=== PATIENT | female | born 1965 | race Two or more races ===

== ENCOUNTER 2016-07-11 08:47 | Emergency (ER) | payer OTHER ==
[2016-07-11 08:56] VITALS: TEMP 98.2; BMI 30.2
--- NOTE | 2016-07-11 09:24 | PDOC ---
History of Present Illness - General History Source: Patient Exam Limitations: No Limitations <TimothyGwen - Last Filed: 07/11/16 11:21> - General History Source: Patient Exam Limitations: No Limitations <Heavenly Irving - Last Filed: 07/11/16 12:05> - General Chief Complaint: Shortness of Breath Stated Complaint: CHEST PAIN, LT ARM PAIN Time Seen by Provider: 07/11/16 09:19 - History of Present Illness Initial Comments: 07/11/16 09:56 The patient is a 50 year old female, with significant past medical history asthma,HLD. 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 She states that the pain initially started in her back and radiated to the front of her chest and left arm. The pain is constant, 8/10 in severity and exacerbated by movement and taking a deep breath. She reports chills, weakness, and fatigue. She visited her PCP on Sunday, 6 days ago, and was prescribed Levaquin. She is on her 6th dose of Levaquin today. She these symptoms feel very similar to when she had bronchitis in the past. Denies cough. Denies fever, nausea, vomiting, diarrhea. Allergies: Penicillins, egg, shellfish, tree nut Surgical Hx: 3 C-sections PCP- (Gwen Aguirre) Past History <Irineo Aguirressica - Last Filed: 07/11/16 11:21> - Past Medical History Anemia: No Asthma: Yes (Intubated in the past 1993) Cancer: No Cardiac Disorders: No CVA: No COPD: Yes CHF: No Dementia: No Diabetes: No GI Disorders: Yes (GALLSTONES) Disorders: No HTN: No Hypercholesterolemia: Yes Liver Disease: No Suicide Attempt (Hx): No Seizures: No Thyroid Disease: Yes (HYPOTHROIDISM) - Surgical History Abdominal Surgery: No Appendectomy: No Cardiac Surgery: No Cholecystectomy: Yes Lung Surgery: No Neurologic Surgery: No Orthopedic Surgery: No - Psycho/Social/Smoking Cessation Hx Anxiety: No Suicidal Ideation: No Smoking History: Former smoker Have you smoked in the past 12 months: No If you are a former smoker, when did you quit?: 11 YRS Information on smoking cessation initiated: No Hx Alcohol Use: No Drug/Substance Use Hx: No Substance Use Type: None Hx Substance Use Treatment: No <Heavenly Irving - Last Filed: 07/11/16 12:05> - Past Medical History Allergies/Adverse Reactions: Allergies Allergy/AdvReac Type Severity Reaction Status Date / Time Penicillins Allergy Severe Rash Verified 07/11/16 08:50 egg Allergy Verified 07/11/16 08:50 shellfish derived Allergy Verified 07/11/16 08:50 tree nut Allergy Hives Verified 07/11/16 08:50 Home Medications: Ambulatory Orders Albuterol Sulfate Inhaler - [Ventolin HFA Inhaler -] 1 - 2 inh PO QID PRN Levothyroxine [Synthroid -] 175 mcg PO DAILY 05/30/14 Simvastatin [Zocor -] 20 mg PO HS 01/10/16 Albuterol 0.083% Nebulizer Purnima [Ventolin 0.083% Nebulizer Soln -] 1 amp NEB PRN 06/20/16 Omeprazole 20 mg PO DAILY 06/20/16 Tiotropium [place] [Spiriva] 1 inh PO DAILY 06/20/16 Azithromycin [Zithromax 250mg Tablets -] 250 mg PO UTDICT #6 tab 07/11/16 Prednisone [Deltasone -] 60 mg PO DAILY #12 tablet 07/11/16 Cardiac Specific PMH - Complaint Specific PMHX Pacemaker: No <Heavenly Irving - Last Filed: 07/11/16 12:05> Review of Systems - Review of Systems Able to Perform ROS?: Yes <Gwen Aguirre - Last Filed: 07/11/16 11:21> <Heavenly Irving - Last Filed: 07/11/16 12:05> - Review of Systems Comments:: 07/11/16 09:57 GENERAL/CONSTITUTIONAL: Yes: chills, weakness. No: fever, loss of appetite. HEAD, EYES, EARS, NOSE AND THROAT: No: change in vision, ear pain, discharge, sore throat, throat swelling. CARDIOVASCULAR: Yes: chest pain. No: lightheadedness, palpitations, syncope RESPIRATORY: No: cough, shortness of breath, wheezing, hemoptysis, stridor. GASTROINTESTINAL: No: nausea, vomiting, abdominal cramping, diarrhea, rectal bleeding, constipation. GENITOURINARY: No: dysuria, hematuria, frequency, urgency, flank pain. MUSCULOSKELETAL: Yes: back pain. No: neck pain, joint pain, muscle swelling or pain SKIN: No: lesions, pallor, rash or easy bruising. NEUROLOGIC: No: headache, vertigo, paresthesias, weakness ENDOCRINE: No: unexplained weight gain or loss HEMATOLOGIC/LYMPHATIC: No: anemia, easy bleeding, swelling nodes (Gwen Aguirre) *Physical Exam <Gwen Aguirre - Last Filed: 07/11/16 11:21> <Heavenly Irving - Last Filed: 07/11/16 12:05> - Vital Signs Last Vital Signs Temp Pulse Resp BP Pulse Ox 98.2 F 71 17 138/83 100 07/11/16 08:52 07/11/16 08:52 07/11/16 08:52 07/11/16 08:52 07/11/16 08:52 - Physical Exam Comments: 07/11/16 09:58 GENERAL: The patient is in no acute distress. HEAD: Normal with no signs of trauma. EYES: PERRLA, EOMI, sclera anicteric, conjunctiva clear. ENT: Ears normal, nares patent, oropharynx clear without exudates. Moist mucous membranes. NECK: Normal range of motion, supple without lymphadenopathy, JVD, or masses. LUNGS: +Left lower lung crackles. No wheezes. HEART:Regular rate and rhythm, normal S1 and S2 without murmur, rub or gallop. ABDOMEN: Soft, nontender, normoactive bowel sounds. No guarding, no rebound. EXTREMITIES: Normal range of motion, no edema. No clubbing or cyanosis. No erythema, or tenderness. NEUROLOGICAL: Cranial nerves II through XII grossly intact. Normal speech. No focal neurological deficits. MUSCULOSKELETAL: Back nontender to palpation, no CVA tenderness SKIN: Warm, Dry, normal turgor, no rashes or lesions noted. (Gwen Aguirre) Heart Score/ECG Review #1 ECG reviewed & interpreted by me at: 11:05 General ECG Interpretation: Sinus Rhythm, Normal Rate, Normal Intervals, No acute ischemic changes <Heavenly Irving - Last Filed: 07/11/16 12:05> ED Treatment Course - LABORATORY CBC & Chemistry Diagram: 07/11/16 09:34 07/11/16 09:34 <Gwen Aguirre - Last Filed: 07/11/16 11:21> - LABORATORY CBC & Chemistry Diagram: 07/11/16 09:34 07/11/16 09:34 <Heavenly Irving - Last Filed: 07/11/16 12:05> - ADDITIONAL ORDERS Additional order review: Laboratory Results 07/11/16 07/11/16 09:46 09:34 D-Dimer < 200 Sodium 138 Potassium 3.8 Chloride 106 Carbon Dioxide 25 Anion Gap 7 L BUN 12 Creatinine 0.9 Creat Clearance w eGFR > 60 Random Glucose 103 Calcium 9.0 Total Bilirubin 0.2 D AST 13 L D ALT 21 D Alkaline Phosphatase 71 Creatine Kinase 77 Troponin I < 0.02 Total Protein 7.5 Albumin 3.7 07/11/16 09:34 RBC 4.39 MCV 85.0 MCHC 33.0 RDW 13.7 MPV 9.0 Neutrophils % 64.2 D Lymphocytes % 26.9 Monocytes % 6.5 Eosinophils % 1.6 Basophils % 0.8 - RADIOLOGY Radiology Studies Ordered: Category Date Time Status CHEST X-RAY PORTABLE* [RAD] Stat Radiology 07/11/16 09:28 Completed Radiograph Interpretation: 07/11/16 11:21 EXAM#: TYPE/EXAM: RESULT: [id number] RAD/CHEST X-RAY PORTABLE* Chest pain. Chest single portable x-ray. Comparison study January 27, 2016. Unremarkable contour of the cardiomediastinal silhouette. The lungs are well aerated. No evidence of pulmonary infiltrates, atelectasis, vascular congestion. No pneumothorax or large pleural effusion is seen. Intact visualized osseous structures. Impression. No evidence of active pulmonary disease. Reported By: South Saul MD 07/11/16 1112 (Gwen Aguirre) Medical Decision Making <Gwen Aguirre - Last Filed: 07/11/16 11:21> <Heavenly Irving - Last Filed: 07/11/16 12:05> - Medical Decision Making 07/11/16 09:24 A portion of this note was documented by scribe services under my direction. I have reviewed the details of the note, within reason, and agree with the documentation with the following case summary and management plan written by me. Nursing documentation reviewed and incorporated into medical decision making 07/11/16 09:36 50 yo F wiht a history of COPD/Asthma, GERD, HLD presenting to the ER with a complaint of left chest and back pain Pt states her symptoms began the week of June 25 She initially she thought it was a cold She was seen by her PMD who started Levaquin Pt is on day 7 today Pt presents because she has noted that her left back pain is now in her chest Pain is worse with deep breathing and movement No fevers (+) chills No cough No travel No ill contacts Last year, pt had 2 admissions for pneumonia 07/11/16 09:46 DD: ACS, PE, pneumonia, effusion, Will do labs, d dimer, cxr Will re assess Will give aleeve for chest wall pain 07/11/16 11:51 07/11/16 11:52 Laboratory Tests 07/11/16 07/11/16 07/11/16 09:34 09:34 09:46 WBC 10.4 H D Hgb 12.3 Hct 37.3 Plt Count 235 Neutrophils % 64.2 D Lymphocytes % 26.9 D-Dimer < 200 BUN 12 Creatinine 0.9 Random Glucose 103 Creatine Kinase 77 Troponin I < 0.02 CXR: negative Will discharge to home Will give Solumedrol and Azithromycin Will ask pt to follow up with Dr St today for pre op clearance Clinical Impression: chest pain (Heavenly Irving) *DC/Admit/Observation/Transfer <Gwen Aguirre - Last Filed: 07/11/16 11:21> - Discharge Dispostion Admit: No <Heavenly Irving - Last Filed: 07/11/16 12:05> Diagnosis at time of Disposition: Chest pain Qualifiers: Chest pain type: unspecified Qualified Code(s): R07.9 - Chest pain, unspecified - Discharge Dispostion Disposition: HOME Condition at time of disposition: Stable - Prescriptions Prescriptions: Prednisone [Deltasone -] 60 mg PO DAILY #12 tablet Azithromycin [Zithromax 250mg Tablets -] 250 mg PO UTDICT #6 tab - Referrals Referrals: Brenda Schmidt [Primary Care Provider] - Goran St MD, MD [Staff Physician] - - Patient Instructions Printed Discharge Instructions: DI for Atypical Chest Pain, DI for Chest Pain, DI for Chronic Obstructive Pulmonary Disease Additional Instructions: Marybeth Thank you for coming in to the ER today I am sorry you are having pain Please take medications as prescribed Please follow up with Dr. St, call today You can take Tylenol for pain Please call your surgeon regarding your surgical date and recommendations regarding use of Aleeve Return to the ER for any other concerns or complaints - Attestations Scribe Attestion: 07/11/16 09:59 Documentation prepared by KATT Lowery, acting as medical biller for Heavenly Irving MD. (Gwen Aguirre)
[2016-07-11 09:58] LABS: BASOPHIL 0.8 % (0-2.0); EOSINOPHIL 1.6 % (0-4.5); MCH 28.1 pg (25.7-33.7); NEUTROPHILS 64.2 % (42.8-82.8); PLATELET COUNT 235 K/MM3 (134-434); RDW 13.7 % (11.6-15.6); WHITE BLOOD COUNT 10.4 K/mm3 (4.0-10.0)
[2016-07-11 10:16] LABS: ALBUMIN 3.7 g/dl (3.4-5.0); ALK PHOS 71 U/L (45-117); ANION GAP 7 (8-16); CO2 25 mmol/L (21-32); CREATININE 0.9 mg/dL (0.55-1.02); GLUCOSE,RANDOM 103 mg/dL (74-106); SGOT/AST 13 U/L (15-37); SGPT/ALT 21 U/L (12-78); TOT PROT 7.5 g/dl (6.4-8.2)
[2016-07-11 10:49] LABS: TROPONIN I < 0.02 ng/ml (0.00-0.05)
[2016-07-11 10:56] LABS: BILIRUBIN,TOTAL 0.2 mg/dL (0.2-1.0)
[2016-07-11] MEDS ORDERED: NAPROXEN 500 MG TABLET (FP) PO ONE (11:21)
[2016-07-11] MEDS ORDERED: NAPROXEN 500 MG TABLET (FP) ONE (11:55)
[2016-07-11 12:38] VITALS: BP 124/80; PULSE 66
--- NOTE | 2016-07-11 18:15 | EKG ---
Test Reason : Blood Pressure : / mmHG Vent. Rate : 074 BPM Atrial Rate : 074 BPM P-R Int : 148 ms QRS Dur : 084 ms QT Int : 384 ms P-R-T Axes : 044 031 039 degrees QTc Int : 426 ms NORMAL SINUS RHYTHM NORMAL ECG WHEN COMPARED WITH ECG OF 20-JUN-2016 10:27, NO SIGNIFICANT CHANGE WAS FOUND Confirmed by QUINTON HAHN MD ([id number]) on 07/11/2016 6:15:19 PM Referred By: Confirmed By:QUINTON HAHN MD
== END 2016-07-11 12:30 | disposition home or self-care (01) ==
LOC: JER 08:47
DX: R07.89 Other chest pain (principal); J45.909 Unspecified asthma, uncomplicated; J44.9 Chronic obstructive pulmonary disease, unspecified; E78.00 Pure hypercholesterolemia, unspecified
CPT/HCPCS: 36415; 71010-TC; 80053; 82550; 84484; 85025; 85379; 93005; 93010; 99284-25

== ENCOUNTER 2016-07-23 17:09 | Emergency (ER) | payer OTHER ==
[2016-07-23 17:15] VITALS: BP 136/81; PULSE 84; TEMP 98; BMI 30.7
[2016-07-23] MEDS ORDERED: IBUPROFEN 600 MG TABLET (FP) PO ONE (17:56)
--- NOTE | 2016-07-23 18:03 | PDOC ---
History of Present Illness - General Chief Complaint: Abscess Boil Stated Complaint: PAIN/BOIL Time Seen by Provider: 07/23/16 17:24 History Source: Patient Exam Limitations: No Limitations - History of Present Illness Initial Comments: 07/23/16 17:57 50 year old female with a medical history of thyroid disease, HTN, asthma and high cholesterol also surgical history of right corneal transplant, tonsillectomy and x 3 complaining of recurrent abscess to right side of head scalp. States area tenderness draining pus and causing her a lot of headache. Denies dizziness or blurriness. Timing/Duration: reports: week Severity: Yes: mild Location: reports: scalp Respiratory Risk Factors: denies: medications Modifying Factors: worse with: antihistamine Associated Symptoms: denies: jaundice, malaise, nasal congestion Past History - Travel Traveled outside of the country in the last 30 days: No Close contact w/someone who was outside of country & ill: No - Past Medical History Allergies/Adverse Reactions: Allergies Allergy/AdvReac Type Severity Reaction Status Date / Time Penicillins Allergy Severe Rash Verified 07/23/16 17:15 egg Allergy Verified 07/23/16 17:15 shellfish derived Allergy Verified 07/23/16 17:15 tree nut Allergy Hives Verified 07/23/16 17:15 Home Medications: Ambulatory Orders Albuterol Sulfate Inhaler - [Ventolin HFA Inhaler -] 1 - 2 inh PO QID PRN Levothyroxine [Synthroid -] 175 mcg PO DAILY 05/30/14 Simvastatin [Zocor -] 20 mg PO HS 01/10/16 Albuterol 0.083% Nebulizer Purnima [Ventolin 0.083% Nebulizer Soln -] 1 amp NEB PRN 06/20/16 Omeprazole 20 mg PO DAILY 06/20/16 Tiotropium [place] [Spiriva] 1 inh PO DAILY 06/20/16 Sulfamethoxazole/Trimethoprim [Bactrim Ds -] 1 tab PO BID #20 tablet 07/23/16 Anemia: No Asthma: Yes (Intubated in the past 1993) Cancer: No Cardiac Disorders: No CVA: No COPD: Yes CHF: No Dementia: No Diabetes: No GI Disorders: Yes (GALLSTONES) Disorders: No HTN: No Hypercholesterolemia: Yes Liver Disease: No Suicide Attempt (Hx): No Seizures: No Thyroid Disease: Yes (HYPOTHROIDISM) - Surgical History Abdominal Surgery: No Appendectomy: No Cardiac Surgery: No Cholecystectomy: Yes Lung Surgery: No Neurologic Surgery: No Orthopedic Surgery: No - Psycho/Social/Smoking Cessation Hx Anxiety: No Suicidal Ideation: No Smoking History: Former smoker Have you smoked in the past 12 months: No If you are a former smoker, when did you quit?: 11 YRS Information on smoking cessation initiated: No Hx Alcohol Use: No Drug/Substance Use Hx: No Substance Use Type: None Hx Substance Use Treatment: No Review of Systems - Review of Systems Able to Perform ROS?: Yes Is the patient limited Syriac proficient: No Constitutional: No: Chills, Fever, Night Sweats, Weakness, Unexplained wgt Loss HEENTM: No: Eye Pain, Double Vision, Nose Congestion, Throat Pain, Throat Swelling Respiratory: No: Cough, Orthopnea, Shortness of Breath, Wheezing Cardiac (ROS): No: Chest Pain, Lightheadedness, Palpitations ABD/GI: No: Abdominal Distended, Blood Streaked Bowels, Nausea, Poor Appetite, Abdominal cramping : No: Hematuria, Incontinence Neurological: Yes: Headache. No: Numbness, Paresthesia, Seizure, Weakness, Other *Physical Exam - Vital Signs Last Vital Signs Temp Pulse Resp BP Pulse Ox 98 F 84 18 136/81 99 07/23/16 17:12 07/23/16 17:12 07/23/16 17:12 07/23/16 17:12 07/23/16 17:12 - Physical Exam General Appearance: Yes: Nourished, Appropriately Dressed, Apparent Distress HEENT: positive: EOMI, MICHAEL, TMs Normal, Pharynx Normal Neck: positive: Supple. negative: Lymphadenopathy (R), Lymphadenopathy (L) Respiratory/Chest: positive: Chest Tender, Lungs Clear, Normal Breath Sounds Cardiovascular: positive: Regular Rhythm, Regular Rate, S1, S2 Extremity: positive: Normal Capillary Refill Integumentary: positive: Bruising Neurologic: positive: product safety compliance leader II-XII NML intact, Fully Oriented, Alert, Normal Mood/ Affect, Normal Response, Motor Strength 5/5 Medical Decision Making - Medical Decision Making 07/23/16 18:04 50 year old female with scalp abscess wound culture ibuprofen 600mg po once -Rx: bactrim ds x 10 days *DC/Admit/Observation/Transfer Diagnosis at time of Disposition: Abscess - Discharge Dispostion Disposition: HOME Condition at time of disposition: Good Admit: No - Prescriptions Prescriptions: Sulfamethoxazole/Trimethoprim [Bactrim Ds -] 1 tab PO BID #20 tablet - Referrals Referrals: Brenda Schmidt [Primary Care Provider] - - Patient Instructions Additional Instructions: Please apply warm compress to area for 20 minutes on and 20 minutes off 3 times daily. Return for dizziness, or blurred vision. Please follow up with material handler 1st shift. Make sure you complete all antibiotics and return for worsening of abscess. - Post Discharge Activity Work/School Note: Back to Work
== END 2016-07-23 18:16 | disposition home or self-care (01) ==
LOC: JERFT 17:09
DX: L02.811 Cutaneous abscess of head [any part, except face] (principal); J45.909 Unspecified asthma, uncomplicated; J44.9 Chronic obstructive pulmonary disease, unspecified; E78.00 Pure hypercholesterolemia, unspecified; E03.9 Hypothyroidism, unspecified
CPT/HCPCS: 87070; 87186; 87205; 99281-25

== ENCOUNTER 2016-11-16 13:13 | Emergency (ER) | payer OTHER ==
[2016-11-16 13:18] VITALS: BMI 30.2
--- NOTE | 2016-11-16 15:32 | PDOC ---
History of Present Illness - General Chief Complaint: Pain Stated Complaint: PAIN Time Seen by Provider: 11/16/16 15:27 History Source: Patient Exam Limitations: No Limitations - History of Present Illness Initial Comments: 11/16/16 15:30 The patient is a 50-year-old female with a significant past medical history of gallstones (noncompliant with recommendation for cholecystectomy) (presents to the emergency department with intermittent right upper quadrant pain for the past 48 hours. The pain is sharp and stabbing. It is associated with mild nausea. She denies fever or chills. The pain occurs more frequently after meals. She does not have any pain at this time. She denies vomiting, diarrhea. She denies rash, dyspnea. She states that she has had chronic vaginal discharge for the past 6 months, and is pending an evaluation with her auto research engineer. She is sexually active with one partner, and has no history of sexually transmitted diseases. She has not had any lower abdominal pain. She would like us to focus on the abdominal pain. She is not concerned about the discharge. 11/16/16 15:33 Past History - Past Medical History Allergies/Adverse Reactions: Allergies Allergy/AdvReac Type Severity Reaction Status Date / Time Penicillins Allergy Severe Rash Verified 11/16/16 13:16 egg Allergy Verified 11/16/16 13:16 shellfish derived Allergy Verified 11/16/16 13:16 tree nut Allergy Hives Verified 11/16/16 13:16 Home Medications: Ambulatory Orders Albuterol Sulfate Inhaler - [Ventolin HFA Inhaler -] 1 - 2 inh PO QID PRN Levothyroxine [Synthroid -] 175 mcg PO DAILY 05/30/14 Simvastatin [Zocor -] 20 mg PO HS 01/10/16 Albuterol 0.083% Nebulizer Purnima [Ventolin 0.083% Nebulizer Soln -] 1 amp NEB PRN 06/20/16 Omeprazole 20 mg PO DAILY 06/20/16 Tiotropium [place] [Spiriva] 1 inh PO DAILY 06/20/16 Sulfamethoxazole/Trimethoprim [Bactrim Ds -] 1 tab PO BID #20 tablet 07/23/16 Anemia: No Asthma: Yes (Intubated in the past 1993) Cancer: No Cardiac Disorders: No CVA: No COPD: Yes CHF: No Dementia: No Diabetes: No GI Disorders: Yes (GALLSTONES) Disorders: No HTN: No Hypercholesterolemia: Yes Liver Disease: No Suicide Attempt (Hx): No Seizures: No Thyroid Disease: Yes (HYPOTHROIDISM) - Surgical History Abdominal Surgery: No Appendectomy: No Cardiac Surgery: No Cholecystectomy: Yes Lung Surgery: No Neurologic Surgery: No Orthopedic Surgery: No - Psycho/Social/Smoking Cessation Hx Anxiety: No Suicidal Ideation: No Smoking History: Former smoker Have you smoked in the past 12 months: No If you are a former smoker, when did you quit?: 12 years ago Information on smoking cessation initiated: No Hx Alcohol Use: No Drug/Substance Use Hx: No Substance Use Type: None Hx Substance Use Treatment: No Review of Systems - Review of Systems Comments:: 11/16/16 15:33 CONSTITUTIONAL: Absent: fever, chills, diaphoresis, generalized weakness, malaise, loss of appetite HEENT: Absent: rhinorrhea, nasal congestion, throat pain, throat swelling, difficulty swallowing, mouth swelling, ear pain, eye pain, visual Changes CARDIOVASCULAR: Absent: chest pain, loss of consciousness, palpitations, irregular heart rate, peripheral edema RESPIRATORY: Absent: cough, shortness of breath, dyspnea with exertion, orthopnea, wheezing, stridor, hemoptysis GASTROINTESTINAL: Present: See history of present illness Absent: abdominal distension, vomiting, diarrhea, constipation, melena, hematochezia GENITOURINARY: Present: see HPI Absent: dysuria, frequency, urgency, hesitancy, hematuria, flank pain, genital pain MUSCULOSKELETAL: Absent: myalgia, arthralgia, joint swelling SKIN: Absent: rash, itching, pallor HEMATOLOGIC/IMMUNOLOGIC: Absent: easy bleeding, easy bruising, lymphadenopathy, frequent infections ENDOCRINE: Absent: unexplained weight gain, unexplained weight loss, heat intolerance, cold intolerance NEUROLOGIC: Absent: headache, focal weakness or paresthesias, dizziness, unsteady gait, seizure, mental status changes, bladder or bowel incontinence PSYCHIATRIC: Absent: anxiety, depression, suicidal or homicidal ideation, hallucinations. *Physical Exam - Vital Signs Last Vital Signs Temp Pulse Resp BP Pulse Ox 98.1 F 92 H 18 156/90 98 11/16/16 13:16 11/16/16 13:16 11/16/16 13:16 11/16/16 13:16 11/16/16 13:16 - Physical Exam Comments: 11/16/16 15:35 GENERAL: Well developed, well nourished. Awake and alert. No acute distress. HEENT: Normocephalic, atraumatic. PERRLA, EOMI. No conjunctival pallor. Sclera are non- icteric. Moist mucous membranes. Oropharynx is clear. NECK: Supple. Full ROM. No JVD. Carotid pulses 2+ and symmetric, without bruits. No thyromegaly. No lymphadenopathy. CARDIOVASCULAR: Regular rate and rhythm. No murmurs, rubs, or gallops. Distal pulses are 2+ and symmetric. PULMONARY: No evidence of respiratory distress. Lungs clear to auscultation bilaterally. No wheezing, rales or rhonchi. ABDOMINAL: Mild tenderness to deep palpation in the right upper quadrant Soft. Non-distended. No rebound or guarding. No organomegaly. Normoactive bowel sounds. MUSCULOSKELETAL Normal range of motion at all joints. No bony deformities or tenderness. No CVA tenderness. EXTREMITIES: No cyanosis. No clubbing. No edema. No calf tenderness. SKIN: Warm and dry. Normal capillary refill. No rashes. No jaundice. NEUROLOGICAL: Alert, awake, appropriate. Cranial nerves 2-12 intact. No deficits to light touch and temperature in face, upper extremities and lower extremities. No motor deficits in the in face, upper extremities and lower extremities. Normoreflexic in the upper and lower extremities. Normal speech. Toes are down- going bilaterally. Gait is normal without ataxia. PSYCHIATRIC: Cooperative. Good eye contact. Appropriate mood and affect. ED Treatment Course - LABORATORY CBC & Chemistry Diagram: 11/16/16 16:04 11/16/16 16:04 Medical Decision Making - Medical Decision Making 11/16/16 15:35 The patient is well-appearing and in no acute distress Her signs and symptoms are potentially consistent with biliary colic I doubt that she has acute cholecystitis Will obtain labs and ultrasound Her gynecological complaints are chronic and long-standing She is being followed by gynecology and states that she has an appointment She does not want us to investigate her gynecological complaints, and at this time, they do not seem related to her right upper quadrant abdominal pain 11/16/16 16:29 Ultrasound has been completed Labs are pending 11/16/16 16:37 Ultrasound noted with cholelithiasis but no evidence of cholecystitis as well as fatty liver 11/16/16 16:52 11/16/16 17:07 Labs noted She is aware of the transaminitis and fatty liver, and understands the necessity of following up with gastroenterology Clinical impression: Biliary colic Fatty liver I have referred her to gastroenterology, surgery, as well as her primary care physician I discussed the physical exam findings, ancillary test results and final diagnoses with the patient. I answered all of the patient's questions. The patient was satisfied with the care received and felt comfortable with the discharge plan and treatment plan. The patient will call their primary care physician within 24 hours to arrange follow-up and will return to the Emergency Department with any new, persistent or worsening symptoms. A portion of this note was documented by scribe services under my direction. I have reviewed the details of the note, within reason, and agree with the documentation with the following case summary and management plan written by me. *DC/Admit/Observation/Transfer Diagnosis at time of Disposition: Abdominal pain - Discharge Dispostion Disposition: HOME - Referrals Referrals: Brenda Schmidt [Primary Care Provider] - Giacomo Hsu MD [Staff Physician] - Call tomorrow Alvarez Skaggs MD [Staff Physician] - Call tomorrow - Patient Instructions Printed Discharge Instructions: DI for Abdominal Pain-Adult, DI for Gallstones , Nonalcoholic Fatty Liver Disease Additional Instructions: Return to the emergency department immediately with ANY new, persistent or worsening symptoms. You MUST call and follow up with your doctor tomorrow. Please make sure your doctor reviews the results of your emergency department evaluation. - Post Discharge Activity Work/School Note: Back to Work
[2016-11-16 16:27] LABS: BASOPHIL 0.7 % (0-2.0); EOSINOPHIL 3.9 % (0-4.5); MCH 27.9 pg (25.7-33.7); MCHC 32.5 g/dl (32.0-36.0); MEAN CELL VOLUME 85.7 fl (80-96); MEAN PLT VOLUME 9.2 fl (7.5-11.1); NEUTROPHILS 65.2 % (42.8-82.8); PLATELET COUNT 237 K/MM3 (134-434); RDW 14.7 % (11.6-15.6); WHITE BLOOD COUNT 8.5 K/mm3 (4.0-10.0)
[2016-11-16 17:02] LABS: ALBUMIN 3.8 g/dl (3.4-5.0); ALK PHOS 91 U/L (45-117); ANION GAP 7 (8-16); BILIRUBIN,TOTAL 0.3 mg/dL (0.2-1.0); CALCIUM 9.1 mg/dL (8.5-10.1); CO2 24 mmol/L (21-32); CREATININE 0.8 mg/dL (0.55-1.02); GLUCOSE,RANDOM 85 mg/dL (74-106); SGOT/AST 70 U/L (15-37); SGPT/ALT 85 U/L (12-78); TOT PROT 7.3 g/dl (6.4-8.2)
[2016-11-16 17:27] VITALS: BP 134/78; PULSE 80; TEMP 98.6
== END 2016-11-16 17:27 | disposition home or self-care (01) ==
LOC: JER 13:13
DX: R11.0 Nausea (principal); R10.9 Unspecified abdominal pain; M54.5 Low back pain
CPT/HCPCS: 36415; 76705-TC; 80053; 83690; 85025; 99281-25

== ENCOUNTER 2017-08-08 10:52 | Emergency (ER) | payer OTHER ==
[2017-08-08 11:01] VITALS: BP 136/74; PULSE 88; TEMP 98.4; BMI 29.4
--- NOTE | 2017-08-08 12:46 | PDOC ---
History of Present Illness - General Chief Complaint: Cold Symptoms Stated Complaint: FEVER, BODY ACHES Time Seen by Provider: 08/08/17 12:40 History Source: Patient Exam Limitations: No Limitations - History of Present Illness Initial Comments: 08/08/17 13:18 Here with complaints of chills, body aches, fevers, ear or throat pain, moist nonproductive cough. The onset of symptoms were yesterday Timing/Duration: reports: just prior to arrival Severity: reports: mild Associated Symptoms: reports: cough, fever/chills, nasal congestion, sore throat , wheezing Past History - Travel Traveled outside of the country in the last 30 days: No Close contact w/someone who was outside of country & ill: No - Past Medical History Allergies/Adverse Reactions: Allergies Allergy/AdvReac Type Severity Reaction Status Date / Time Penicillins Allergy Severe Rash Verified 08/08/17 11:01 egg Allergy Verified 08/08/17 11:01 shellfish derived Allergy Verified 08/08/17 11:01 tree nut Allergy Hives Verified 08/08/17 11:01 Home Medications: Ambulatory Orders Albuterol Sulfate Inhaler - [Ventolin HFA Inhaler -] 1 - 2 inh PO QID PRN Levothyroxine [Synthroid -] 175 mcg PO DAILY 05/30/14 Simvastatin [Zocor -] 20 mg PO HS 01/10/16 Albuterol 0.083% Nebulizer Purnima [Ventolin 0.083% Nebulizer Soln -] 1 amp NEB PRN 06/20/16 Omeprazole 20 mg PO DAILY 06/20/16 Tiotropium [place] [Spiriva] 1 inh PO DAILY 06/20/16 Oseltamivir Phosphate [Tamiflu -] 75 mg PO BID #10 capsule 08/08/17 Anemia: No Asthma: Yes (Intubated in the past 1993) Cancer: No Cardiac Disorders: No CVA: No COPD: Yes CHF: No Dementia: No Diabetes: No GI Disorders: Yes (GALLSTONES) Disorders: No HTN: No Hypercholesterolemia: Yes Liver Disease: No Seizures: No Thyroid Disease: Yes (HYPOTHROIDISM) - Surgical History Abdominal Surgery: No Appendectomy: No Cardiac Surgery: No Cholecystectomy: Yes Lung Surgery: No Neurologic Surgery: No Orthopedic Surgery: No - Suicide/Smoking/Psychosocial Hx Smoking History: Never smoked Have you smoked in the past 12 months: No If you are a former smoker, when did you quit?: 12 years ago Information on smoking cessation initiated: No Hx Alcohol Use: No Drug/Substance Use Hx: No Substance Use Type: None Hx Substance Use Treatment: No Review of Systems - Review of Systems Able to Perform ROS?: No Is the patient limited American proficient: No Constitutional: Yes: Symptoms Reported, See HPI, Malaise HEENTM: Yes: Symptoms Reported, See HPI Respiratory: Yes: See HPI, Cough Musculoskeletal: Yes: Symptoms Reported, See HPI, Muscle Pain Integumentary: Yes: See HPI. No: Symptoms Reported Neurological: Yes: See HPI. No: Symptoms reported All Other Systems: Reviewed and Negative *Physical Exam - Vital Signs Last Vital Signs Temp Pulse Resp BP Pulse Ox 98.4 F 88 18 136/74 98 08/08/17 10:58 08/08/17 10:58 08/08/17 10:58 08/08/17 10:58 08/08/17 10:58 - Physical Exam General Appearance: Yes: Nourished, Appropriately Dressed, Apparent Distress, Mild Distress HEENT: positive: MICHAEL (glassy), TMs Normal (congested), Pharyngeal Erythema, Tonsillar Erythema, Nasal Congestion, Rhinorrhea. negative: Normal ENT Inspection, Tonsillar Exudate Neck: positive: Tender, Supple, Lymphadenopathy (R), Lymphadenopathy (L) Respiratory/Chest: positive: Lungs Clear (course but clear) Gastrointestinal/Abdominal: positive: Tender, Soft. negative: Normal Bowel Sounds Musculoskeletal: positive: Normal Inspection Extremity: positive: Normal Capillary Refill, Normal Inspection, Normal Range of Motion Integumentary: positive: Dry, Warm, Pale Neurologic: positive: correctional lieutenant II-XII NML intact, Fully Oriented, Alert, Normal Mood/ Affect, Normal Response, Motor Strength 5/5 Progress Note - Progress Note Progress Note: Upper respiratory infection, probably influenza, will treat with Tamiflu *DC/Admit/Observation/Transfer Diagnosis at time of Disposition: Influenzal acute upper respiratory infection - Discharge Dispostion Disposition: HOME Condition at time of disposition: Stable Admit: No - Referrals Referrals: Brenda Schmidt [Primary Care Provider] - - Patient Instructions Printed Discharge Instructions: DI for Viral Upper Respiratory Infection-Child Additional Instructions: Rest, drink lots of fluids: Teas, water, soups, Pedialyte Saltwater gargles Steamy showers/seem to face break up mucus Old-fashioned treatments help! Avoid contact with others until fevers and cough resolved as this is very contagious Lots of handwashing and good hygiene Continue [id number] medications for symptomatic relief Tylenol or Motrin for fever and pain Take all of Tamiflu as directed: 1 tab every 12 hours for 5 days Followup with private physician in one to 2 days as needed or if worsening Return to emergency department for worsened symptoms, fevers, dehydration Influenza takes between 5 and 7 days for resolution To not participate in any activity, work, or school until fevers and cough are gone for at least one day - Post Discharge Activity
== END 2017-08-08 13:34 | disposition home or self-care (01) ==
LOC: JERFT 10:52
DX: J11.1 Influenza due to unidentified influenza virus with other respiratory manifestations (principal); J45.909 Unspecified asthma, uncomplicated; E78.00 Pure hypercholesterolemia, unspecified; E03.9 Hypothyroidism, unspecified; Z87.891 Personal history of nicotine dependence
CPT/HCPCS: 99281-25

== ENCOUNTER 2017-10-09 15:05 | Observation (INO) | payer OTHER ==
--- NOTE | 2017-10-09 15:09 | PDOC ---
Rapid Medical Evaluation Time Seen by Provider: 10/09/17 15:07 Medical Evaluation: Allergies Allergy/AdvReac Type Severity Reaction Status Date / Time Penicillins Allergy Severe Rash Verified 08/08/17 11:01 egg Allergy Verified 08/08/17 11:01 shellfish derived Allergy Verified 08/08/17 11:01 tree nut Allergy Hives Verified 08/08/17 11:01 10/09/17 15:07 I have performed a brief in-person evaluation of this patient. The patient presents with a chief complaint of: "bad cough since Sunday", chest pain, SOB, "lungs heart", hx of 2 intubations - denies fever, vomiting, diarrhea, +chills Pertinent physical exam findings: expiratory wheezing b/l I have ordered the following: duoneb, cxr The patient will proceed to the ED for further evaluation. Discharge Disposition - Diagnosis Cough - Referrals - Patient Instructions - Post Discharge Activity
[2017-10-09 15:10] VITALS: TEMP 97.9; BMI 29.0
[2017-10-09] MEDS ORDERED: ALBUTEROL SO4 2.5/IPRATROPIUM 0.5 INH SOL 3 ML VIAL.NEB. NEB ONE ×3 (15:10→18:17)
[2017-10-09] MEDS ORDERED: predniSONE 20 MG TABLET (UD) PO ONE (16:40)
--- NOTE | 2017-10-09 16:40 | PDOC ---
History of Present Illness - General Chief Complaint: Cold Symptoms Stated Complaint: CHEST PAIN, COUGH Time Seen by Provider: 10/09/17 15:07 History Source: Patient - History of Present Illness Timing/Duration: reports: other, yesterday Severity: reports: moderate Associated Symptoms: reports: cough, shortness of breath, wheezing. denies: chest pain/soreness Past History - Past Medical History Allergies/Adverse Reactions: Allergies Allergy/AdvReac Type Severity Reaction Status Date / Time Penicillins Allergy Severe Rash Verified 10/09/17 15:10 egg Allergy Verified 10/09/17 15:10 shellfish derived Allergy Verified 10/09/17 15:10 tree nut Allergy Hives Verified 10/09/17 15:10 Home Medications: Ambulatory Orders Albuterol Sulfate Inhaler - [Ventolin HFA Inhaler -] 1 - 2 inh PO QID PRN Levothyroxine [Synthroid -] 175 mcg PO DAILY 05/30/14 Simvastatin [Zocor -] 20 mg PO HS 01/10/16 Albuterol 0.083% Nebulizer Purnima [Ventolin 0.083% Nebulizer Soln -] 1 amp NEB PRN 06/20/16 Omeprazole 20 mg PO DAILY 06/20/16 Tiotropium [place] [Spiriva] 1 inh PO DAILY 06/20/16 Oseltamivir Phosphate [Tamiflu -] 75 mg PO BID #10 capsule 08/08/17 Anemia: No Asthma: Yes (Intubated in the past 1993) Cancer: No Cardiac Disorders: No CVA: No COPD: Yes CHF: No Dementia: No Diabetes: No GI Disorders: Yes (GALLSTONES) Disorders: No HTN: No Hypercholesterolemia: Yes Liver Disease: No Seizures: No Thyroid Disease: Yes (HYPOTHROIDISM) - Surgical History Abdominal Surgery: No Appendectomy: No Cardiac Surgery: No Cholecystectomy: Yes Lung Surgery: No Neurologic Surgery: No Orthopedic Surgery: No - Suicide/Smoking/Psychosocial Hx Smoking History: Never smoked Have you smoked in the past 12 months: No If you are a former smoker, when did you quit?: 12 years ago Information on smoking cessation initiated: No Hx Alcohol Use: No Drug/Substance Use Hx: No Substance Use Type: None Hx Substance Use Treatment: No Review of Systems - Review of Systems Constitutional: No: Chills, Fever Respiratory: Yes: Cough, Shortness of Breath, Wheezing *Physical Exam - Vital Signs Last Vital Signs Temp Pulse Resp BP Pulse Ox 97.9 F 86 19 135/81 100 10/09/17 15:07 10/09/17 15:07 10/09/17 15:07 10/09/17 15:07 10/09/17 15:07 - Physical Exam General Appearance: Yes: Appropriately Dressed. No: Apparent Distress HEENT: positive: Normal Voice Neck: positive: Supple Respiratory/Chest: positive: Wheezing. negative: Respiratory Distress Cardiovascular: positive: Regular Rate, S1, S2 Integumentary: positive: Dry, Warm Neurologic: positive: Fully Oriented, Alert, Normal Mood/Affect Heart Score/ECG Review - ECG Intrepretation Comment:: 10/09/17 17:58 Twelve-lead EKG was performed and reviewed by me. There is normal sinus rhythm with a normal rate. The axis is normal. The intervals are normal. There are no ST or T wave abnormalities. Impression: Normal twelve-lead EKG ED Treatment Course - LABORATORY CBC & Chemistry Diagram: 10/09/17 18:36 10/09/17 18:36 - Medications Given in the ED: ED Medications Discontinued Medications Generic Name Dose Route Start Last Admin Trade Name Freq PRN Reason Stop Dose Admin Albuterol/Ipratropium 1 amp 10/09/17 15:10 10/09/17 15:14 Duoneb - NEB 10/09/17 15:11 1 amp ONCE ONE Administration Medical Decision Making - Medical Decision Making 10/09/17 16:38 51-year-old female, former smoker, history of asthma, no admissions or intubations, uses asthma pump and nebulizer machine at home, here with cough for shortness of breath and wheezing since yesterday. No fever or chills. Using medications at home with no relief. See exam Asthma flare Stable w/ diffuse wheezing CXR neg -nebs/pred -reassess 10/09/17 17:56 Pt continues to have diffuse wheezing and complaining of shortness of breath despite multiple nebs and prednisone. Chest x-ray negative for infiltrate. EKG with normal sinus rhythm with no ST-T wave ab/nl. Patient might need admission to obs for serial nebs. Will get labs and give max sulfate at this time. Pt signed out to Dr Quiñonez in main ED. Patient pending bed in main 10/09/17 20:24 Pt appears comfortable but continues to report that she is not feeling any better and in short of breath. Minimal wheeze on auscultation currently. Mag completed. Do not suspect PE at this time as no obvious risk factors and PERCs out. Will discuss with hospitalist and admit to observation. *DC/Admit/Observation/Transfer Diagnosis at time of Disposition: Asthma exacerbation Qualifiers: Asthma severity: unspecified severity Asthma persistence: intermittent Qualified Code(s): J45.21 - Mild intermittent asthma with (acute) exacerbation - Discharge Dispostion Condition at time of disposition: Improved Admit: Yes - Referrals Referrals: Brenda Schmidt [Primary Care Provider] - - Patient Instructions - Post Discharge Activity
[2017-10-09] MEDS ORDERED: predniSONE 20 MG TABLET (UD) ONE (16:43)
[2017-10-09] MEDS: ALBUTEROL SO4 2.5/IPRATROPIUM 0.5 INH SOL 3 ML VIAL.NEB. NEB SCH ×4 (16:58→18:32)
[2017-10-09] MEDS ORDERED: MAGNESIUM SULF 50% (8.12 MEQ/2 ML-1 GM VIAL) IVPB ONE (17:55)
--- NOTE | 2017-10-09 18:43 | PDOC ---
*Physical Exam - Vital Signs Last Vital Signs Temp Pulse Resp BP Pulse Ox 97.9 F 86 19 135/81 100 10/09/17 15:07 10/09/17 15:07 10/09/17 15:07 10/09/17 15:07 10/09/17 15:07 ED Treatment Course - LABORATORY CBC & Chemistry Diagram: 10/09/17 18:36 10/09/17 18:36 - Medications Given in the ED: ED Medications Discontinued Medications Generic Name Dose Route Start Last Admin Trade Name Marilynn PRN Reason Stop Dose Admin Albuterol/Ipratropium 1 amp 10/09/17 15:10 10/09/17 15:14 Duoneb - NEB 10/09/17 15:11 1 amp ONCE ONE Administration Albuterol/Ipratropium 1 amp 10/09/17 16:45 10/09/17 18:32 Duoneb - NEB 10/09/17 17:31 1 amp Q15M COLTON Administration Prednisone 60 mg 10/09/17 16:40 10/09/17 16:58 Deltasone - PO 10/09/17 16:41 60 mg ONCE ONE Administration Medical Decision Making - Medical Decision Making 10/09/17 18:42 The patient was signed out to me by Rox STRATTON. Pt remaining in fast track d/t room restrictions in main ED. Rox STRATTON continuing care of patient. I have agreed with her plan for continued nebulizers, mag, and steroids. On my evaluation, the patient did not have any wheezing and has improved. Pt continues to cough during exam but has lungs CTAB. Pending improvement with mag and labs. 10/09/17 20:25 Pt appears comfortable on repeat examination. No wheezes heard. She states she feels "the same" as when she arrived despite normal exam. I agree with VIRAL Gramajo' s plan to admit the patient for observation. *DC/Admit/Observation/Transfer Diagnosis at time of Disposition: Asthma exacerbation Qualifiers: Asthma severity: unspecified severity Asthma persistence: intermittent Qualified Code(s): J45.21 - Mild intermittent asthma with (acute) exacerbation - Discharge Dispostion Condition at time of disposition: Improved - Referrals Referrals: Brenda Schmidt [Primary Care Provider] - - Patient Instructions - Post Discharge Activity
[2017-10-09 18:52] LABS: BASO % 0.3 % (0-2.0); EOS % 4.3 % (0-4.5); HEMATOCRIT 36.5 % (32.4-45.2); HEMOGLOBIN 12.2 GM/dL (10.7-15.3); LYMPH % 19.9 % (8-40); MCH 27.9 pg (25.7-33.7); MCHC 33.5 g/dl (32.0-36.0); MEAN CELL VOLUME 83.3 fl (80-96); MEAN PLT VOLUME 8.8 fl (7.5-11.1); MONO % 6.9 % (3.8-10.2); NEUT % 68.6 % (42.8-82.8); PLATELET COUNT 246 K/MM3 (134-434); RBC 4.39 M/mm3 (3.60-5.2); RDW 13.2 % (11.6-15.6); WHITE BLOOD COUNT 9.5 K/mm3 (4.0-10.0)
[2017-10-09 19:16] LABS: ALBUMIN 3.5 g/dl (3.4-5.0); ANION GAP 11 (8-16); BILIRUBIN,TOTAL 0.4 mg/dL (0.2-1.0); BLOOD UREA NITROGEN 6 mg/dL (7-18); CALCIUM 8.8 mg/dL (8.5-10.1); CHLORIDE 104 mmol/L (98-107); CO2 24 mmol/L (21-32); CREATININE 0.7 mg/dL (0.55-1.02); GLUCOSE,RANDOM 144 mg/dL (74-106); POTASSIUM 3.1 mmol/L (3.5-5.1); SGOT/AST 16 U/L (15-37); SGPT/ALT 17 U/L (12-78); SODIUM 139 mmol/L (136-145); TOT PROT 7.5 g/dl (6.4-8.2)
[2017-10-09 19:17] LABS: ALK PHOS 72 U/L (45-117)
[2017-10-09] MEDS ORDERED: MAGNESIUM SULF 50% (8.12 MEQ/2 ML-1 GM VIAL) ONE (19:50)
[2017-10-09] MEDS ORDERED: POTASSIUM CHLORIDE TABS 20 MEQ TABLET.ER (FP) PO ONE (20:23)
--- NOTE | 2017-10-09 21:59 | HP ---
CHIEF COMPLAINT: sob PCP: HISTORY OF PRESENT ILLNESS: This is a 51 year old female with a medical history of asthma, copd, hypothyroid, hld, who presents with worsening shortness of breath x1week that has gotten progressively worse. She admits to using her albuterol inhaler more frequently, >5x yesterday. She endorses dry cough, chills, sore throat. Denies fever, sputum production, chest pain, palpitations, hemoptysis. States she used inhalers as directed. No sick contacts, travel, smoking. ER course was notable for: (1)prednisone, mg, given in ER, no response (2)CXR altelectasis Recent Travel: no PAST MEDICAL HISTORY: asthma, hypothyroid, hld, copd PAST SURGICAL HISTORY: Social History: Smoking:no Alcohol:no Drugs: no Family History: Allergies Penicillins Allergy (Severe, Verified 10/09/17 15:10) Rash egg Allergy (Verified 10/09/17 15:10) shellfish derived Allergy (Verified 10/09/17 15:10) tree nut Allergy (Verified 10/09/17 15:10) Hives HOME MEDICATIONS: Home Medications Medication Instructions Recorded Albuterol Sulfate Inhaler - 1 - 2 inh PO QID PRN 05/30/14 [Ventolin HFA Inhaler -] Levothyroxine [Synthroid -] 175 mcg PO DAILY 05/30/14 Simvastatin [Zocor -] 20 mg PO HS 01/10/16 Albuterol 0.083% Nebulizer Purnima 1 amp NEB PRN 06/20/16 [Ventolin 0.083% Nebulizer Soln -] Omeprazole 20 mg PO DAILY 06/20/16 Tiotropium [place] [Spiriva] 1 inh PO DAILY 06/20/16 Oseltamivir Phosphate [Tamiflu -] 75 mg PO BID #10 capsule 08/08/17 REVIEW OF SYSTEMS CONSTITUTIONAL: Positive: chills Absent: fever, diaphoresis, generalized weakness, malaise, loss of appetite, weight change HEENT: Positive: sore throat Absent: rhinorrhea, nasal congestion, throat pain, throat swelling, difficulty swallowing, mouth swelling, ear pain, eye pain, visual changes CARDIOVASCULAR: Absent: chest pain, syncope, palpitations, irregular heart rate, lightheadedness , peripheral edema RESPIRATORY: Positive: cough, shortness of breath, dyspnea with exertion, Absent: orthopnea, wheezing, stridor, hemoptysis GASTROINTESTINAL: Absent: abdominal pain, abdominal distension, nausea, vomiting, diarrhea, constipation, melena, hematochezia GENITOURINARY: Absent: dysuria, frequency, urgency, hesitancy, hematuria, flank pain, genital pain MUSCULOSKELETAL: Absent: myalgia, arthralgia, joint swelling, back pain, neck pain SKIN: Absent: rash, itching, pallor HEMATOLOGIC/IMMUNOLOGIC: Absent: easy bleeding, easy bruising, lymphadenopathy, frequent infections ENDOCRINE: Absent: unexplained weight gain, unexplained weight loss, heat intolerance, cold intolerance NEUROLOGIC: Absent: headache, focal weakness or paresthesias, dizziness, unsteady gait, seizure, mental status changes, bladder or bowel incontinence PSYCHIATRIC: Absent: anxiety, depression, suicidal or homicidal ideation, hallucinations. PHYSICAL EXAMINATION Vital Signs - 24 hr 10/09/17 15:07 Temperature 97.9 F Pulse Rate 86 Respiratory 19 Rate Blood Pressure 135/81 O2 Sat by Pulse 100 Oximetry (%) GENERAL: Awake, alert, and fully oriented, in no acute distress. HEAD: Normal with no signs of trauma. EYES: Pupils equal, round and reactive to light, extraocular movements intact, sclera anicteric, conjunctiva clear. No lid lag. right eye blind EARS, NOSE, THROAT: Ears normal, nares patent, oropharynx clear without exudates. Moist mucous membranes. NECK: Normal range of motion, supple without lymphadenopathy, JVD, or masses. LUNGS:decreased air exchange; bilateral wheezes HEART: Regular rate and rhythm, normal S1 and S2 without murmur, rub or gallop. ABDOMEN: Soft, nontender, not distended, normoactive bowel sounds, no guarding, no rebound, no masses. No hepatomegaly or splenomegaly. MUSCULOSKELETAL: Normal range of motion at all joints. No bony deformities or tenderness. No CVA tenderness. UPPER EXTREMITIES: 2+ pulses, warm, well-perfused. No cyanosis. No clubbing. No peripheral edema. LOWER EXTREMITIES: 2+ pulses, warm, well-perfused. No calf tenderness. No peripheral edema. NEUROLOGICAL: Cranial nerves II-XII intact. Normal speech. Normal gait. PSYCHIATRIC: Cooperative. Good eye contact. Appropriate mood and affect. SKIN: Warm, dry, normal turgor, no rashes or lesions noted, normal capillary refill. Laboratory Results - last 24 hr 10/09/17 10/09/17 18:36 18:36 WBC 9.5 RBC 4.39 Hgb 12.2 Hct 36.5 MCV 83.3 MCH 27.9 MCHC 33.5 RDW 13.2 D Plt Count 246 MPV 8.8 Neutrophils % 68.6 Lymphocytes % 19.9 Monocytes % 6.9 Eosinophils % 4.3 Basophils % 0.3 Sodium 139 Potassium 3.1 L Chloride 104 Carbon Dioxide 24 Anion Gap 11 BUN 6 L Creatinine 0.7 Creat Clearance w eGFR > 60 Random Glucose 144 H Calcium 8.8 Total Bilirubin 0.4 D AST 16 ALT 17 Alkaline Phosphatase 72 Total Protein 7.5 Albumin 3.5 ASSESSMENT/PLAN: This is a 51 year old female with a medial history of hypothyroid, asthma, copd , who presents with sore throat and dyspneia, admitted in observation for acute asthma exacerbation. #acute asthma exacerbation sec to viral -IV solumedrol 40mg BID -cont spiriva -albuterol neb scheduled and prn -pulm consult #hypothyroid: -cont levothyroxine VTE: scds/ambulate Fluids: po Diet: regular Disposition: obs med surg Visit type - Emergency Visit Emergency Visit: Yes Care time: The patient presented to the Emergency Department on the above date and was hospitalized for further evaluation of their emergent condition. - New Patient This patient is new to me today: Yes Date on this admission: 10/09/17 - Critical Care Critical Care patient: No Hospitalist Screening - Colonoscopy Questionnaire Colonoscopy Questionnaire: Colonoscopy Questionnaire - Patient: 50 - 75 years old and never had a screening colonoscopy: Yes History of colon or rectal polyps, or CA: Unknown History of IBD, Crohn's disease or UC: Unknown History of abdominal radiation therapy as a child: Unknown - Relative: 1 with colon or rectal CA, or polyps at age 60 or younger: Unknown Colon or rectal CA diagnosed at age 45 or younger: Unknown Multiple relatives with colon or rectal CA: Unknown - Outcome: Screening Result: Positive Screen
[2017-10-09] MEDS ORDERED: ATORVASTATIN CA 10 MG TABLET (FP) PO SCH (22:00)
[2017-10-09] MEDS ORDERED: ALBUTEROL SO4 0.083% IH SOL 2.5 MG/3 ML VIAL.NEB. NEB PRN (22:00)
--- NOTE | 2017-10-09 22:20 | PN ---
Teaching Attending Note Name of Resident: Fozia Holley ATTENDING PHYSICIAN STATEMENT I saw and evaluated the patient. I reviewed the resident's note and discussed the case with the resident. I agree with the resident's findings and plan as documented. SUBJECTIVE: 51 F with pmhx. of Asthma, Intubated in 1992, hypothyriodism, gallstones, R eye corneal transplant, with increased use of her nebulizers since Sunday. States she has had a cold since Sunday, she has needed her inhaler at night, during the coarse of this week. Notes no fevers or chills. No sputum. No chest pain, pressure or shortness of breath. OBJECTIVE: Physical: VS: Vital Signs Period Temp Pulse Resp BP Sys/Burks Pulse Ox Last 24 Hr 97.9 F 86 19 135/81 100 GEN: NAD, Resting in bed, AA0X3, Able to speak full sentences, appears comfortable HEENT: NCAT, R. Eye non-reactive, L. Reactive, Throat without erythema or exudates CARD: RRR S1, S2 RESP: Mild expiratory wheezing bilaterally ABD: BSx4, NTD to palpation EXT: - C/C/E CBCD WBC 9.5 K/mm3 (4.0-10.0) 10/09/17 18:36 RBC 4.39 M/mm3 (3.60-5.2) 10/09/17 18:36 Hgb 12.2 GM/dL (10.7-15.3) 10/09/17 18:36 Hct 36.5 % (32.4-45.2) 10/09/17 18:36 MCV 83.3 fl (80-96) 10/09/17 18:36 MCHC 33.5 g/dl (32.0-36.0) 10/09/17 18:36 RDW 13.2 % (11.6-15.6) D 10/09/17 18:36 Plt Count 246 K/MM3 (134-434) 10/09/17 18:36 MPV 8.8 fl (7.5-11.1) 10/09/17 18:36 CMP Sodium 139 mmol/L (136-145) 10/09/17 18:36 Potassium 3.1 mmol/L (3.5-5.1) L 10/09/17 18:36 Chloride 104 mmol/L (98-107) 10/09/17 18:36 Carbon Dioxide 24 mmol/L (21-32) 10/09/17 18:36 Anion Gap 11 (8-16) 10/09/17 18:36 BUN 6 mg/dL (7-18) L 10/09/17 18:36 Creatinine 0.7 mg/dL (0.55-1.02) 10/09/17 18:36 Creat Clearance w eGFR > 60 (>60) 10/09/17 18:36 Random Glucose 144 mg/dL (74-106) H 10/09/17 18:36 Calcium 8.8 mg/dL (8.5-10.1) 10/09/17 18:36 Total Bilirubin 0.4 mg/dL (0.2-1.0) D 10/09/17 18:36 AST 16 U/L (15-37) 10/09/17 18:36 ALT 17 U/L (12-78) 10/09/17 18:36 Alkaline Phosphatase 72 U/L (45-117) 10/09/17 18:36 Total Protein 7.5 g/dl (6.4-8.2) 10/09/17 18:36 Albumin 3.5 g/dl (3.4-5.0) 10/09/17 18:36 CXR: Linear Atelectesis RML. Home Medications Medication Instructions Recorded Albuterol Sulfate Inhaler - 1 - 2 inh PO QID PRN 05/30/14 [Ventolin HFA Inhaler -] Levothyroxine [Synthroid -] 175 mcg PO DAILY 05/30/14 Simvastatin [Zocor -] 20 mg PO HS 01/10/16 Albuterol 0.083% Nebulizer Purnima 1 amp NEB PRN 06/20/16 [Ventolin 0.083% Nebulizer Soln -] Omeprazole 20 mg PO DAILY 06/20/16 Tiotropium [place] [Spiriva] 1 inh PO DAILY 06/20/16 Oseltamivir Phosphate [Tamiflu -] 75 mg PO BID #10 capsule 08/08/17 EKG- PENDING ASSESSMENT AND PLAN: 51 F with pmhx. of Asthma, Intubated in 1992, hypothyriodism, gallstones, R eye corneal transplant, who presents with shortness of breath, being admitted for a Acute Exacerbation of Asthma 1.) Acute Exacerbation of Asthma - Duonebs Atc/PRN - S/P Mg 2+ in ED - PEFR - S/P Solu-Medrol, Prednisone 60 in am - C/W Spiriva in AM - Pulm. Consult 2.) Hypothyriodism - Chk. TSH - C/W Synthriod 3.) HLD - C/W Statin 4.) Dvt Ppx - Ambulate Place in Obs Med-Sx
[2017-10-10] MEDS ORDERED: methylPREDNISolone NA SUCC 40 MG/1 ML VIAL IVPUSH SCH ×2 (02:00→10:00)
[2017-10-10] MEDS ORDERED: LEVOTHYROXINE 100 MCG, LEVOTHYROXINE 75 MCG PO SCH (07:00)
[2017-10-10] MEDS ORDERED: LEVOTHYROXINE NA 175 MCG TABLET PO SCH (07:00)
[2017-10-10] MEDS ORDERED: ALBUTEROL SO4 2.5/IPRATROPIUM 0.5 INH SOL 3 ML VIAL.NEB. NEB ONE (08:18)
[2017-10-10] MEDS: ALBUTEROL SO4 2.5/IPRATROPIUM 0.5 INH SOL 3 ML VIAL.NEB. NEB SCH ×2 (08:20→12:11)
[2017-10-10 08:22] LABS: BASO % 0.1 % (0-2.0); HEMOGLOBIN 11.4 GM/dL (10.7-15.3); MCH 27.8 pg (25.7-33.7); MCHC 33.6 g/dl (32.0-36.0); MEAN CELL VOLUME 82.7 fl (80-96); MEAN PLT VOLUME 8.6 fl (7.5-11.1); MONO % 5.4 % (3.8-10.2); NEUT % 84.5 % (42.8-82.8); PLATELET COUNT 251 K/MM3 (134-434); RBC 4.11 M/mm3 (3.60-5.2); RDW 13.7 % (11.6-15.6); WHITE BLOOD COUNT 8.1 K/mm3 (4.0-10.0)
[2017-10-10 08:54] LABS: ANION GAP 8 (8-16); BLOOD UREA NITROGEN 6 mg/dL (7-18); CALCIUM 8.7 mg/dL (8.5-10.1); CHLORIDE 106 mmol/L (98-107); CO2 24 mmol/L (21-32); CREATININE 0.7 mg/dL (0.55-1.02); GLUCOSE,RANDOM 103 mg/dL (74-106); MAGNESIUM 2.5 mg/dL (1.8-2.4); PHOSPHOROUS 2.3 mg/dL (2.5-4.9); POTASSIUM 4.3 mmol/L (3.5-5.1); SODIUM 138 mmol/L (136-145)
[2017-10-10] MEDS ORDERED: TIOTROPIUM BROMIDE 18 MCG CAPSULES IH SCH (10:00)
[2017-10-10] MEDS ORDERED: predniSONE 20 MG TABLET (UD) PO SCH (10:00)
[2017-10-10] MEDS ORDERED: predniSONE 20 MG TABLET (UD) ONE (10:13)
--- NOTE | 2017-10-10 11:31 | PN ---
Progress Note (short form) - Note Progress Note: PULMONARY CONSULTATION DICTATED 10/10/17 IMP ASTHMA EXACERBATION COUGH HYPOTHYROID HLD PLAN STEROIDS INHALED BRONCHODILATORS MONITOR PEAK FLOW PFTS OUTPATIENT ANTI-TUSSIVES DR MOORE Problem List - Problems (1) Asthma exacerbation Code(s): J45.901 - UNSPECIFIED ASTHMA WITH (ACUTE) EXACERBATION Qualifiers: Asthma severity: unspecified severity Asthma persistence: intermittent Qualified Code(s): J45.21 - Mild intermittent asthma with (acute) exacerbation (2) Cough Code(s): R05 - COUGH (3) Hypothyroid Code(s): E03.9 - HYPOTHYROIDISM, UNSPECIFIED
[2017-10-10] MEDS ORDERED: AZITHROMYCIN 500 MG TABLET PO ONE (12:22)
[2017-10-10] MEDS ORDERED: AZITHROMYCIN 500 MG TABLET ONE (12:35)
--- NOTE | 2017-10-10 12:35 | CONS ---
DATE OF CONSULTATION: 10/10/2017 REFERRING PHYSICIAN: Mary Feldman MD HISTORY OF PRESENT ILLNESS: The patient is a 51-year-old female with a past medical history of chronic asthma, history of COPD, hypothyroidism, hyperlipidemia, longstanding history of tobacco use approximately 2 packs a day for many years quitting 13 years ago, who was admitted to [facility] with complaint of 1-week history of increasing shortness of breath, cough, and bronchospasm. Patient states that symptoms increased approximately a week ago. At that time, she started taking inhaler which offered minimal improvement. Over the past few days, the symptoms continued to worsen. Yesterday, prior to admission, she took inhaler 5 times without any improvement, decided to present to the emergency room. She denied any fevers or chills. She did have complaint of cough, chills, and sore throat. She denied any chest pains or palpitations. She states that she is currently compliant with the medications. She has a history of intubation 23 years ago. There is no history of recent travel. There is no history of DVT or PE in the past. PAST MEDICAL HISTORY: Again includes asthma, COPD, hypothyroidism, hyperlipidemia. SOCIAL HISTORY: Tobacco use, quit 13 years ago. No occupational exposures. REVIEW OF SYSTEMS: Positive for shortness of breath. Positive for cough. Positive for wheeze. No chest pain. No palpitations. No nausea. No vomiting. No abdominal pain. No lower extremity edema. CURRENT MEDICATIONS: Include prednisone 60 daily, albuterol, Spiriva, Duo-Neb, and Synthroid. PHYSICAL EXAMINATION: General: The patient is a well-developed, well-nourished female, awake, alert, and currently in no acute distress. Vital signs: She is currently afebrile, blood pressure is 120/63, respiratory rate is 18, O2 saturation is 99% on room air. HEENT: Head is normocephalic atraumatic. Neck: Supple. Heart: Regular, S1, S2. Chest: Clear. Abdomen: Soft. Bowel sounds positive. Extremities: No cyanosis or edema. LABORATORIES: WBC is 8.1, hemoglobin 11.4, hematocrit 34.0, platelet count of 251,000. Electrolytes: BUN 6, creatinine 0.7. Chest x-ray: No infiltrates and no effusions. IMPRESSION: 1. Asthma with acute exacerbation. 2. History of hyperlipidemia. 3. Hypothyroidism. PLAN: Steroids, inhaled bronchodilators, O2 p.r.n., monitor peak flow. COURT MOORE M.D. PRECIOUS/[id number]
--- NOTE | 2017-10-10 13:00 | PN ---
Teaching Attending Note Name of Resident: Estephania Nixon ATTENDING PHYSICIAN STATEMENT I saw and evaluated the patient. I reviewed the resident's note and discussed the case with the resident. I agree with the resident's findings and plan as documented with exceptions below. SUBJECTIVE: Patient seen and examined. breathing improved, still with cough. Overall better. OBJECTIVE: Vital Signs Period Temp Pulse Resp BP Sys/Burks Pulse Ox Last 24 Hr 97.9 F 68-86 18-19 120-135/63-81 99-100 Intake & Output 10/07/17 10/08/17 10/09/17 10/10/17 23:59 23:59 23:59 23:59 Weight 159 lb Chest: good air entry, no rales or wheezing currently General: lying in stretcher in no acute distress Home Medication List Medication Instructions Recorded Confirmed Type Albuterol Sulfate Inhaler - 1 - 2 inh PO QID PRN 05/30/14 10/09/17 History [Ventolin HFA Inhaler -] Levothyroxine [Synthroid -] 175 mcg PO DAILY 05/30/14 10/09/17 History Simvastatin [Zocor -] 20 mg PO HS 01/10/16 10/09/17 History Albuterol 0.083% Nebulizer Purnima 1 amp NEB PRN 06/20/16 10/09/17 History [Ventolin 0.083% Nebulizer Soln -] Omeprazole 20 mg PO DAILY 06/20/16 10/09/17 History Tiotropium [place] [Spiriva] 1 inh PO DAILY 06/20/16 10/09/17 History Active Medications Generic Name Dose Route Start Last Admin Trade Name Freq PRN Reason Stop Dose Admin Albuterol Sulfate 1 amp 10/09/17 22:00 Ventolin 0.083% Nebulizer Soln - NEB Q3H PRN SHORTNESS OF BREATH Albuterol/Ipratropium 1 amp 10/10/17 08:00 10/10/17 12:11 Duoneb - NEB 1 amp RQID COLTON Administration Atorvastatin Calcium 10 mg 10/09/17 22:00 10/10/17 06:15 Lipitor - PO Not Given HS COLTON Levothyroxine Sodium 100 mcg/ 175 mcg 10/10/17 07:00 10/10/17 09:56 Levothyroxine Sodium 75 mcg PO 175 mcg DAILY@0700 COLTON Administration Prednisone 60 mg 10/10/17 10:00 10/10/17 10:17 Deltasone - PO 60 mg DAILY COLTON Administration Tiotropium [place] 1 puff 10/10/17 10:00 10/10/17 10:17 Spiriva - IH 1 puff DAILY COLTON Administration Laboratory Results - last 24 hr 10/09/17 10/09/17 10/10/17 18:36 18:36 07:46 WBC 9.5 8.1 RBC 4.39 4.11 Hgb 12.2 11.4 Hct 36.5 34.0 MCV 83.3 82.7 MCH 27.9 27.8 MCHC 33.5 33.6 RDW 13.2 D 13.7 Plt Count 246 251 MPV 8.8 8.6 Neutrophils % 68.6 84.5 H D Lymphocytes % 19.9 10.0 D Monocytes % 6.9 5.4 Eosinophils % 4.3 0.0 D Basophils % 0.3 0.1 Sodium 139 Potassium 3.1 L Chloride 104 Carbon Dioxide 24 Anion Gap 11 BUN 6 L Creatinine 0.7 Creat Clearance w eGFR > 60 Random Glucose 144 H Calcium 8.8 Phosphorus Magnesium Total Bilirubin 0.4 D AST 16 ALT 17 Alkaline Phosphatase 72 Total Protein 7.5 Albumin 3.5 10/10/17 07:46 WBC RBC Hgb Hct MCV MCH MCHC RDW Plt Count MPV Neutrophils % Lymphocytes % Monocytes % Eosinophils % Basophils % Sodium 138 Potassium 4.3 Chloride 106 Carbon Dioxide 24 Anion Gap 8 BUN 6 L Creatinine 0.7 Creat Clearance w eGFR Random Glucose 103 Calcium 8.7 Phosphorus 2.3 L Magnesium 2.5 H Total Bilirubin AST ALT Alkaline Phosphatase Total Protein Albumin CXr results reviewed ASSESSMENT AND PLAN: -Acute asthma exacerbation -Hypothyroidism Plan: Improved, oxygen 97-98% on RA at rest and ambulation. D/c on 3 days of azithromycin and prednisone taper with outpatient pulmonary follow up. Discussed with patient in detail, all questions answered. D/c home today. Plan discussed with Dr. Hogan.
--- NOTE | 2017-10-10 13:20 | DS ---
Physical Exam: SUBJECTIVE: Patient seen and examined OBJECTIVE: Vital Signs Period Temp Pulse Resp BP Sys/Burks Pulse Ox Last 24 Hr 97.9 F 68-86 18-19 120-135/63-81 99-100 PHYSICAL EXAM GENERAL: The patient is awake, alert, and fully oriented, in no acute distress. HEAD: Normal with no signs of trauma. EYES: PERRL, extraocular movements intact, sclera anicteric, conjunctiva clear. ENT: Ears normal, nares patent, oropharynx clear without exudates, moist mucous membranes. NECK: Trachea midline, full range of motion, supple. LUNGS: Breath sounds equal, clear to auscultation bilaterally, no wheezes, no crackles, no accessory muscle use. HEART: Regular rate and rhythm, S1, S2 without murmur, rub or gallop. ABDOMEN: Soft, nontender, nondistended, normoactive bowel sounds, no guarding, no rebound, no hepatosplenomegaly, no masses. EXTREMITIES: 2+ pulses, warm, well-perfused, no edema. NEUROLOGICAL: Cranial nerves II through XII grossly intact. Normal speech, gait not observed. PSYCH: Normal mood, normal affect. SKIN: Warm, dry, normal turgor, no rashes or lesions noted. LABS Laboratory Results - last 24 hr 10/09/17 10/09/17 10/10/17 18:36 18:36 07:46 WBC 9.5 8.1 RBC 4.39 4.11 Hgb 12.2 11.4 Hct 36.5 34.0 MCV 83.3 82.7 MCH 27.9 27.8 MCHC 33.5 33.6 RDW 13.2 D 13.7 Plt Count 246 251 MPV 8.8 8.6 Neutrophils % 68.6 84.5 H D Lymphocytes % 19.9 10.0 D Monocytes % 6.9 5.4 Eosinophils % 4.3 0.0 D Basophils % 0.3 0.1 Sodium 139 Potassium 3.1 L Chloride 104 Carbon Dioxide 24 Anion Gap 11 BUN 6 L Creatinine 0.7 Creat Clearance w eGFR > 60 Random Glucose 144 H Calcium 8.8 Phosphorus Magnesium Total Bilirubin 0.4 D AST 16 ALT 17 Alkaline Phosphatase 72 Total Protein 7.5 Albumin 3.5 10/10/17 07:46 WBC RBC Hgb Hct MCV MCH MCHC RDW Plt Count MPV Neutrophils % Lymphocytes % Monocytes % Eosinophils % Basophils % Sodium 138 Potassium 4.3 Chloride 106 Carbon Dioxide 24 Anion Gap 8 BUN 6 L Creatinine 0.7 Creat Clearance w eGFR Random Glucose 103 Calcium 8.7 Phosphorus 2.3 L Magnesium 2.5 H Total Bilirubin AST ALT Alkaline Phosphatase Total Protein Albumin HOSPITAL COURSE: Date of Admission:10/09/17 Date of Discharge: 10/10/17 Discharge Summary Reason For Visit: ASTHMA Current Active Problems Asthma exacerbation (Acute) Cough (Acute) Condition: Improved - Instructions Diet, Activity, Other Instructions: You were admitted to the hospital for acute exacerbation of your asthma. You were started on a steroid taper and a 3 day course of Azithromycin (antibiotic). Recommendations: -Resume your regular daily activities as tolerated. -rest and plenty of fluids to maintain adequate hydration. Medications: Continue to your regular home medications as directed with the following additions: 1) You were started on a steroid taper. Take prednisone (steroid) 60mg daily. Your first dose will be tomorrow. Follow the schedule below: 10/11-: Take 60mg daily (2 days) 10/13-16: Take 50mg daily (3 days) 10/16-: Take 40mg daily (3 days) 10/19-: Take 30mg daily (3 days) 10/22-: Take 20mg daily (3 days) 10/25-: Take 10mg daily (3 days) 2) Take Azithromycin 500mg daily. Your first dose will be tomorrow (10/11) and your last dose will be on , 10/12. 3) Take Robitussin as needed for you cough. 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 You should have your lung function tested (PFTs). -Make an appointment to see you primary care physician in 1-2 weeks for post hospitalization evaluation. Please return to the Emergency Department if you have difficulty breathing, fever, chills, or any new or concerning symptoms. Referrals: Brenda Schmidt [Primary Care Provider] - Goran St MD, [Staff Physician] - Disposition: HOME - Home Medications Comprehensive Discharge Medication List: Ambulatory Orders Albuterol Sulfate Inhaler - [Ventolin HFA Inhaler -] 1 - 2 inh PO QID PRN Levothyroxine [Synthroid -] 175 mcg PO DAILY 05/30/14 Simvastatin [Zocor -] 20 mg PO HS 01/10/16 Albuterol 0.083% Nebulizer Purnima [Ventolin 0.083% Nebulizer Soln -] 1 amp NEB PRN 06/20/16 Omeprazole 20 mg PO DAILY 06/20/16 Tiotropium [place] [Spiriva] 1 inh PO DAILY 06/20/16 Albuterol 2.5/Ipratropium 0.5 [Duoneb -] 1 amp NEB RQID amp 10/10/17 Azithromycin 500 mg PO DAILY #2 tablet 10/10/17 Prednisone See Taper PO DAILY #570 tab.ds.pk 10/10/17
--- NOTE | 2017-10-10 13:38 | EKG ---
Test Reason : Blood Pressure : / mmHG Vent. Rate : 082 BPM Atrial Rate : 082 BPM P-R Int : 144 ms QRS Dur : 084 ms QT Int : 370 ms P-R-T Axes : 068 053 050 degrees QTc Int : 432 ms NORMAL SINUS RHYTHM NORMAL ECG WHEN COMPARED WITH ECG OF 11-JUL-2016 08:56, NO SIGNIFICANT CHANGE WAS FOUND Confirmed by JAUN JOSEPH MD ([id number]) on 10/10/2017 1:38:36 PM Referred By: EC Confirmed By:JAUN JOSEPH MD
[2017-10-10 17:27] VITALS: BP 131/85; PULSE 96
== END 2017-10-10 13:48 | disposition home or self-care (01) ==
LOC: JER 15:05 → JERFT 15:05 → JERBED 22:01
PROVIDERS: ADMIT Internal Medicine; ATTEND Hospitalist
PROC: 3E033GC Introduction of Other Therapeutic Substance into Peripheral Vein, Percutaneous Approach (ICD-10-PCS; principal; 2017-10-09)
PROC: 3E0F7GC Introduction of Other Therapeutic Substance into Respiratory Tract, Via Natural or Artificial Opening (ICD-10-PCS; 2017-10-09)
DX: J45.21 Mild intermittent asthma with (acute) exacerbation (principal); J44.9 Chronic obstructive pulmonary disease, unspecified; E78.5 Hyperlipidemia, unspecified; E03.9 Hypothyroidism, unspecified; Z88.0 Allergy status to penicillin; Z91.013 Allergy to seafood; Z91.012 Allergy to eggs; Z91.018 Allergy to other foods; Z87.891 Personal history of nicotine dependence
CPT/HCPCS: 36415; 71046-TC-FY; 80048; 80053; 83735; 84100; 85025; 93005; 93010; 94640; 96374; 99283-25; G0378

== ENCOUNTER 2018-05-14 09:48 | Day surgery (SDC) | payer OTHER | END 2018-05-14 10:45 | disposition home or self-care (01) | LOC: JASU-ENDO 09:48 | PROVIDERS: ATTEND Internal Medicine Gastroenterology | PROC: 3E013GC Introduction of Other Therapeutic Substance into Subcutaneous Tissue, Percutaneous Approach (ICD-10-PCS; principal; 2018-05-14) | DX: Z53.8 Procedure and treatment not carried out for other reasons (principal) | CPT/HCPCS: 84703 ==

== ENCOUNTER 2018-05-14 10:34 | Emergency (ER) | payer OTHER ==
[2018-05-14 10:51] VITALS: BP 115/76; PULSE 91; TEMP 98.1; BMI 28.1
[2018-05-14] MEDS ORDERED: diphenhydrAMINE HCL 25 MG CAPSULE (FP) PO ONE ×2 (11:30→11:39)
--- NOTE | 2018-05-14 11:36 | PDOC ---
History of Present Illness - General Chief Complaint: Respiratory Stated Complaint: FEVER, RASH Time Seen by Provider: 05/14/18 11:27 - History of Present Illness Initial Comments: 05/14/18 11:33 52-year-old female with a past medical history significant for hypothyroidism presents for evaluation of a generalized body rash which occurred 2 days ago after using hair dye. She was scheduled for a colonoscopy today however they told her to report to the emergency room for evaluation and treatment of her rash. She has taking nothing for her rash at this point Past History - Past Medical History Allergies/Adverse Reactions: Allergies Allergy/AdvReac Type Severity Reaction Status Date / Time Penicillins Allergy Severe Rash Verified 05/14/18 10:48 egg Allergy Verified 05/14/18 10:48 shellfish derived Allergy Verified 05/14/18 10:48 tree nut Allergy Hives Verified 05/14/18 10:48 Home Medications: Ambulatory Orders Albuterol Sulfate Inhaler - [Ventolin HFA Inhaler -] 1 - 2 inh PO QID PRN Levothyroxine [Synthroid -] 175 mcg PO DAILY 05/30/14 Simvastatin [Zocor -] 20 mg PO HS 01/10/16 Omeprazole 20 mg PO DAILY 06/20/16 Tiotropium [place] [Spiriva] 1 inh PO DAILY 06/20/16 Multivitamin [One Daily] 1 tab PO DAILY 10/10/17 Albuterol 0.083% Nebulizer Purnima [Ventolin 0.083% Nebulizer Soln -] 1 amp NEB PRN #20 amp 02/19/18 predniSONE [Deltasone -] 60 mg PO UTDICT #30 tablet 02/19/18 Methylprednisolone [Medrol Dose Gavin] 4 mg PO ASDIR #21 tablet 05/14/18 Anemia: No Asthma: Yes Cancer: No Cardiac Disorders: No CVA: No COPD: Yes CHF: No Dementia: No Diabetes: No GI Disorders: Yes (GALLSTONES) Disorders: No HTN: No Hypercholesterolemia: Yes Liver Disease: No Seizures: No Thyroid Disease: Yes (HYPOTHYROIDISM) - Surgical History Abdominal Surgery: No Appendectomy: No Cardiac Surgery: No Cholecystectomy: Yes Lung Surgery: No Neurologic Surgery: No Orthopedic Surgery: No - Suicide/Smoking/Psychosocial Hx Smoking History: Never smoked Have you smoked in the past 12 months: No If you are a former smoker, when did you quit?: 12 years ago Information on smoking cessation initiated: No Hx Alcohol Use: No Drug/Substance Use Hx: No Substance Use Type: None Hx Substance Use Treatment: No Review of Systems - Review of Systems Constitutional: No: Fever HEENTM: No: Throat Swelling Respiratory: No: Shortness of Breath, Wheezing Cardiac (ROS): No: Chest Pain Integumentary: Yes: Pruritus, Rash *Physical Exam - Vital Signs Last Vital Signs Temp Pulse Resp BP Pulse Ox 98.1 F 91 H 16 115/76 98 05/14/18 10:48 05/14/18 10:48 05/14/18 10:48 05/14/18 10:48 05/14/18 10:48 - Physical Exam Comments: 05/14/18 11:33 HEAD: NC/AT EYES: Conjuntiva clear Ears: Canals and TM's normal NOSE: No d/c THROAT: Moist mucous membrances, oral pharanx clear, uvula midline NECK: Supple without adenopathy CARDIAC: S1 S2 LUNGS: CTA Full and Equal breath sounds ABDOMEN: Soft NT ND MS: Full ROM in all joints without edema NEUROLOGIC: No gross sensory or motor deficits, NVID SKIN: Normal color and temperature are diffuse wheals on the face and anterior chest as well as the arms Medical Decision Making - Medical Decision Making 05/14/18 11:34 Steroids and Benadryl follow-up with PCP *DC/Admit/Observation/Transfer Diagnosis at time of Disposition: Allergic reaction to chemical substance - Discharge Dispostion Disposition: HOME Condition at time of disposition: Stable Decision to Admit order: No - Prescriptions Prescriptions: Methylprednisolone [Medrol Dose Gavin] 4 mg PO ASDIR #21 tablet - Referrals Referrals: Brenda Schmidt [Primary Care Provider] - - Patient Instructions Printed Discharge Instructions: DI for General Allergic Reactions Additional Instructions: Please take the steroid pack as directed. Return to the emergency room should symptoms worsen. Follow-up with your primary care physician in one to 2 days for further evaluation and treatment options. And continue to take the over-the- counter Benadryl as directed. The Benadryl is for itching - Post Discharge Activity
== END 2018-05-14 11:46 | disposition home or self-care (01) ==
LOC: JERFT 10:34
DX: T49.4X1A Poisoning by keratolytics, keratoplastics, and other hair treatment drugs and preparations, accidental (unintentional), initial encounter (principal); L23.5 Allergic contact dermatitis due to other chemical products; Y92.89 Other specified places as the place of occurrence of the external cause
CPT/HCPCS: 99281-25

== ENCOUNTER 2018-08-20 06:43 | Day surgery (SDC) | payer OTHER ==
[2018-08-16 15:36] VITALS: BMI 28.3
[2018-08-20 08:36] VITALS: TEMP 97.9
[2018-08-20 09:59] VITALS: BP 112/66; PULSE 78
--- NOTE | 2018-08-22 16:16 | PATH ---
Surgical Pathology Report Patient Name: ORLANDO JIMENEZ [facility]. Rec. #: [id number] /Age/Gender: 1965 (Age: 52) / F Account: [id number] Location: U-ENDOSCOPY Taken: 08/20/2018 Received: 08/20/2018 Reported: 08/22/2018 Physicians: Giacomo Hsu M.D. Specimen(s) Received BX ANTRUM Clinical History Abdominal pain, screening Postoperative diagnosis: Normal GI Final Diagnosis STOMACH, ANTRUM, BIOPSY: GASTRIC ANTRAL MUCOSA WITH SEVERE CHRONIC ACTIVE GASTRITIS AND FOCAL INTESTINAL METAPLASIA. IMMUNOHISTOCHEMICAL STAIN FOR H. PYLORI IS POSITIVE (MANY). Electronically Signed Rosangela Kiser M.D. Gross Description Received in formalin, labeled "antrum" are 2 conklin, irregular portions of soft tissue measuring 0.2 and 0.3 cm. in greatest dimension. The specimens are submitted in toto in one cassette. /08/20/201808/20/2018
== END 2018-08-20 09:25 | disposition home or self-care (01) ==
LOC: JASU-ENDO 06:43
PROVIDERS: ATTEND Internal Medicine Gastroenterology
PROC: 0DB68ZX Excision of Stomach, Via Natural or Artificial Opening Endoscopic, Diagnostic (ICD-10-PCS; principal; 2018-08-20 08:00)
DX: K29.50 Unspecified chronic gastritis without bleeding (principal)
CPT/HCPCS: 84703; 88305-TC; 88342-TC

== ENCOUNTER 2018-09-04 09:08 | Emergency (ER) | payer OTHER ==
[2018-09-04 09:30] VITALS: BP 147/74; PULSE 88; TEMP 98.6; BMI 27.4
[2018-09-04] MEDS ORDERED: ONDANSETRON *ODT* 4 MG TABLET SL ONE (10:15)
[2018-09-04] MEDS ORDERED: LIDOCAINE VISCOUS 2% ORAL/TOP 20 ML UNIT-DOSE CUP MM ONE (10:18)
[2018-09-04] MEDS ORDERED: MAG HYDROX/AL HYDROX/SIMETH -MYLANTA- ORAL SUSPENSION PO ONE (10:18)
[2018-09-04] MEDS ORDERED: RANITIDINE HCL 150 MG/10 ML UNIT-DOSE PO ONE (10:19)
[2018-09-04] MEDS ORDERED: ONDANSETRON *ODT* 4 MG TABLET ONE (10:19)
[2018-09-04] MEDS ORDERED: RANITIDINE HCL 150 MG TABLET (FP) ONE (10:23)
[2018-09-04] MEDS ORDERED: LIDOCAINE VISCOUS 2% ORAL/TOP 20 ML UNIT-DOSE CUP ONE (10:23)
[2018-09-04] MEDS ORDERED: MAG HYDROX/AL HYDROX/SIMETH 30 ML UNIT-DOSE CUP ONE (10:24)
[2018-09-04 10:48] LABS: BASO % 0.4 % (0-2.0); EOS % 5.6 % (0-4.5); HEMATOCRIT 39.7 % (32.4-45.2); HEMOGLOBIN 13.5 GM/dL (10.7-15.3); LYMPH % 27.2 % (8-40); MCHC 33.9 g/dl (32.0-36.0); MEAN CELL VOLUME 82.6 fl (80-96); MEAN PLT VOLUME 8.9 fl (7.5-11.1); MONO % 11.8 % (3.8-10.2); PLATELET COUNT 237 K/MM3 (134-434); RBC 4.81 M/mm3 (3.60-5.2); RDW 13.2 % (11.6-15.6); WHITE BLOOD COUNT 6.2 K/mm3 (4.0-10.0)
[2018-09-04 11:22] LABS: ALBUMIN 3.5 g/dl (3.4-5.0); ALK PHOS 55 U/L (45-117); ANION GAP 7 MMOL/L (8-16); BILIRUBIN,TOTAL 0.4 mg/dL (0.2-1); BLOOD UREA NITROGEN 13 mg/dL (7-18); CALCIUM 8.8 mg/dL (8.5-10.1); CHLORIDE 109 mmol/L (98-107); CO2 26 mmol/L (21-32); CREATININE 0.7 mg/dL (0.55-1.3); GLUCOSE,RANDOM 72 mg/dL (74-106); POTASSIUM 4.3 mmol/L (3.5-5.1); SGOT/AST 33 U/L (15-37); SGPT/ALT 36 U/L (13-61); SODIUM 142 mmol/L (136-145); TOT PROT 7.2 g/dl (6.4-8.2)
--- NOTE | 2018-09-04 12:39 | EKG ---
Test Reason : Blood Pressure : / mmHG Vent. Rate : 079 BPM Atrial Rate : 079 BPM P-R Int : 122 ms QRS Dur : 082 ms QT Int : 372 ms P-R-T Axes : 033 029 032 degrees QTc Int : 426 ms NORMAL SINUS RHYTHM NORMAL ECG WHEN COMPARED WITH ECG OF 19-FEB-2018 13:25, NO SIGNIFICANT CHANGE WAS FOUND Confirmed by JAUN JOSEPH MD ([id number]) on 09/04/2018 12:39:41 PM Referred By: Confirmed By:JAUN JOSEPH MD
--- NOTE | 2018-09-04 14:54 | PDOC ---
Documentation entered by Kassi Jackson SCRIBE, acting as scribe for April Russell MD. History of Present Illness - General Chief Complaint: Pain, Acute Stated Complaint: BODY ACHES Time Seen by Provider: 09/04/18 10:04 History Source: Patient Exam Limitations: No Limitations - History of Present Illness Initial Comments: 09/04/18 10:19 The patient is a 52 year old female with a significant past medical history of Asthma, HLD, Thyroid dysfunction, COPD, right eye blindness s/p trauma, who presents for evaluation of generalized weakness, body aches, nausea, vomiting, and left sided chest discomfort. She states she had an endoscopy and colonoscopy with Dr. Hsu on 08/20/18, was found to have H.Pylori, and reports starting Abx and omeprazole on 08/27/18. She states her symptoms have been the same despite taking the Abx. She reports her last episode of emesis was yesterday, NBNB. She states she has been experiencing nausea, vomiting for about a year which prompted her to make the appointment with Dr. Hsu. She also reports a discomfort to her left anterior chest which is exacerbated with palpation and intermittent. She also reports having a nonproductive cough for a few days. She reports having a normal stress test last year with Dr. Jules Allergies: NKDA Past History - Past Medical History Allergies/Adverse Reactions: Allergies Allergy/AdvReac Type Severity Reaction Status Date / Time Penicillins Allergy Severe Rash Verified 09/04/18 09:26 egg Allergy Verified 09/04/18 09:26 shellfish derived Allergy Verified 09/04/18 09:26 tree nut Allergy Hives Verified 09/04/18 09:26 Home Medications: Ambulatory Orders Albuterol Sulfate Inhaler - [Ventolin HFA Inhaler -] 1 - 2 inh PO QID PRN Levothyroxine [Synthroid -] 175 mcg PO DAILY 05/30/14 Simvastatin [Zocor -] 20 mg PO HS 01/10/16 Tiotropium [place] [Spiriva] 1 inh PO DAILY 06/20/16 Multivitamin [One Daily] 1 tab PO DAILY 10/10/17 Albuterol 0.083% Nebulizer Purnima [Ventolin 0.083% Nebulizer Soln -] 1 amp NEB PRN #20 amp 02/19/18 Clarithromycin [Biaxin -] 500 mg PO BID 09/04/18 Omeprazole 20 mg PO BID 09/04/18 Ondansetron [Zofran *Odt*] 8 mg SL TID PRN #15 od.tablet 09/04/18 metroNIDAZOLE [Flagyl -] 500 mg PO BID 09/04/18 Anemia: No Asthma: Yes Cancer: No Cardiac Disorders: No CVA: No COPD: Yes CHF: No Dementia: No Diabetes: No GI Disorders: Yes (GALLSTONES) Disorders: No HTN: No Hypercholesterolemia: Yes Liver Disease: No Seizures: No Thyroid Disease: Yes (HYPOTHYROIDISM) - Surgical History Abdominal Surgery: No Appendectomy: No Cardiac Surgery: No Cholecystectomy: Yes Lung Surgery: No Neurologic Surgery: No Orthopedic Surgery: No - Suicide/Smoking/Psychosocial Hx Smoking History: Unknown if ever smoked Have you smoked in the past 12 months: No If you are a former smoker, when did you quit?: 12 years ago Hx Alcohol Use: No Drug/Substance Use Hx: No Substance Use Type: None Hx Substance Use Treatment: No Review of Systems - Review of Systems Able to Perform ROS?: Yes Comments:: 09/04/18 10:19 GENERAL/CONSTITUTIONAL: (+) subjective fevers, chills, fatigue and generalized weakness. HEAD, EYES, EARS, NOSE AND THROAT: No change in vision. No ear pain or discharge. No sore throat. CARDIOVASCULAR: (+) Left chest pain . No shortness of breath. RESPIRATORY: (+) cough, No wheezing, or hemoptysis. GASTROINTESTINAL: (+) nausea, vomiting, No abdominal pain, diarrhea or constipation. GENITOURINARY: No dysuria, frequency, or change in urination. MUSCULOSKELETAL: No joint or muscle swelling or pain. No neck or back pain. SKIN: No rash NEUROLOGIC: No headache, vertigo, loss of consciousness, or change in strength/ sensation. ENDOCRINE: No increased thirst. No abnormal weight change. HEMATOLOGIC/LYMPHATIC: No anemia, easy bleeding, or history of blood clots. ALLERGIC/IMMUNOLOGIC: No hives or skin allergy. *Physical Exam - Vital Signs Last Vital Signs Temp Pulse Resp BP Pulse Ox 98.6 F 88 18 147/74 98 09/04/18 09:28 09/04/18 09:28 09/04/18 09:28 09/04/18 09:28 09/04/18 09:28 - Physical Exam Comments: 09/04/18 10:21 GENERAL: Awake, alert, and fully oriented, in no acute distress ENT: Moist mucosa LUNGS: Breath sounds equal, clear to auscultation bilaterally. No wheezes, and no crackles HEART: Regular rate and rhythm, normal S1 and S2, no murmurs, rubs or gallops CHEST: (+) reproducible anterior left chest wall tenderness. ABDOMEN: Soft, nontender, normoactive bowel sounds. No guarding, no rebound. No masses EXTREMITIES: Normal range of motion, no edema. No clubbing or cyanosis. No cords, erythema, or tenderness NEUROLOGICAL: AAOx3. Cranial nerves II through XII grossly intact. Normal speech, normal gait SKIN: Warm, Dry, normal turgor, no rashes or lesions noted. Moderate Sedation - Procedure Monitoring Vital Signs: Procedure Monitoring Vital Signs Temperature 98.6 F 09/04/18 09:28 Pulse Rate 88 09/04/18 09:28 Respiratory Rate 18 09/04/18 09:28 Blood Pressure 147/74 09/04/18 09:28 O2 Sat by Pulse Oximetry (%) 98 09/04/18 09:28 ED Treatment Course - LABORATORY CBC & Chemistry Diagram: 09/04/18 10:16 09/04/18 10:39 - ADDITIONAL ORDERS Additional order review: Laboratory Results 09/04/18 10:39 Sodium 142 Potassium 4.3 Chloride 109 H Carbon Dioxide 26 Anion Gap 7 L BUN 13 Creatinine 0.7 Creat Clearance w eGFR > 60 Random Glucose 72 L Calcium 8.8 Total Bilirubin 0.4 AST 33 ALT 36 Alkaline Phosphatase 55 Creatine Kinase 82 Troponin I < 0.02 Total Protein 7.2 Albumin 3.5 09/04/18 10:16 RBC 4.81 MCV 82.6 MCHC 33.9 RDW 13.2 MPV 8.9 Neutrophils % 55.0 D Lymphocytes % 27.2 D Monocytes % 11.8 H D Eosinophils % 5.6 H D Basophils % 0.4 D - RADIOLOGY Radiology Studies Ordered: Category Date Time Status CHEST PA & LAT [RAD] Stat Radiology 09/04/18 10:13 Completed Radiograph Interpretation: EXAM#: TYPE/EXAM: RESULT: [id number] RAD/CHEST PA LAT Cough, nausea rule out infection. Chest. 2 views. Comparison study February 19, 2018. Unremarkable contour of the cardiomediastinal silhouette. The lungs are well aerated. There is no evidence of pneumonia, CHF, pleural effusion or pneumothorax. No bulky hilar adenopathy seen. The visualized osseous structures appear intact. Impression. No evidence of active pulmonary disease. No pleural effusion, or pneumothorax is seen. Reported By: [place] Saul MD 09/04/18 1132 - Medications Given in the ED: ED Medications Discontinued Medications Generic Name Dose Route Start Last Admin Trade Name Freq PRN Reason Stop Dose Admin Al Hydroxide/Mg Hydroxide 30 ml 09/04/18 10:18 09/04/18 10:40 Mylanta Suspension - PO 09/04/18 10:19 30 ml ONCE ONE Administration Lidocaine HCl 10 ml 09/04/18 10:18 09/04/18 10:41 Xylocaine 2% Viscous Oral - MM 09/04/18 10:19 10 ml ONCE ONE Administration Ondansetron HCl 4 mg 09/04/18 10:15 09/04/18 10:40 Zofran Odt - SL 09/04/18 10:16 4 mg ONCE ONE Administration Ranitidine HCl 150 mg 09/04/18 10:19 09/04/18 10:41 Zantac Oral Solution - PO 09/04/18 10:20 150 mg ONCE ONE Administration Medical Decision Making - Medical Decision Making 09/04/18 14:5 52 yo F with h/o h pylori, on triple therapy here wtih c/o epigastric pain, nause, vomiting intermittently. and now chest pain with coughing. no f/c but has myalgia. last emesis day prior, did have soup today no vomiting. on exam min ttp on abd. chest wall ttp. legs no edema. plan cxr labs ekg. motrin for pain control pt cxr normal. trop negative. ekg unremarkable. will dc home likley secondary to triple therapy. recommend fu with gi. *DC/Admit/Observation/Transfer Diagnosis at time of Disposition: Gastritis, Chest wall pain - Discharge Dispostion Disposition: HOME Condition at time of disposition: Improved - Prescriptions Prescriptions: Ondansetron [Zofran *Odt*] 8 mg SL TID PRN #15 od.tablet PRN Reason: Nausea - Referrals Referrals: Brenda Schmidt [Primary Care Provider] - - Patient Instructions Printed Discharge Instructions: Gastritis, Helicobacter Pylori Infection Additional Instructions: you should continue taking your antiobiotics and medication as prescribed by your buffet attendant. return for intractable vomiting, fever, or any concerns. your labs are normal and your ekg and chest xray is normal as well. you can use zofran 4 mg every 8 hrs as needed for nausea. follow up with your primary doctor call to schedule. - Post Discharge Activity April Russell MD: This documentation has been prepared by the Renetta brennan Amanda, SCRIBE, under my direction and personally reviewed by me in its entirety. I confirm that the documentation accurately reflects all work, treatment, procedures, and medical decision making performed by me.
== END 2018-09-04 15:07 | disposition home or self-care (01) ==
LOC: JER 09:08
DX: K29.70 Gastritis, unspecified, without bleeding (principal); R07.89 Other chest pain; J45.909 Unspecified asthma, uncomplicated; E78.00 Pure hypercholesterolemia, unspecified; E03.9 Hypothyroidism, unspecified
CPT/HCPCS: 36415; 71046-TC-FY; 80053; 82550; 84484; 85025; 93005; 93010; 99282-25; Q0162

== ENCOUNTER 2019-04-10 10:15 | Emergency (ER) | payer OTHER ==
[2019-04-10 10:27] VITALS: BMI 27.4
[2019-04-10] MEDS ORDERED: METHOCARBAMOL 500 MG TABLET PO ONE (11:33)
[2019-04-10] MEDS ORDERED: ACETAMINOPHEN 1000 MG/100 ML VIAL (NON FORMULARY) IVPB ONE (11:33)
[2019-04-10] MEDS ORDERED: SODIUM CHLORIDE 1,000 ML IV STA (11:37)
[2019-04-10] MEDS ORDERED: METHOCARBAMOL 500 MG TABLET ONE (11:52)
[2019-04-10] MEDS ORDERED: ACETAMINOPHEN INJECTION 100 ML IVPB ONE (11:52)
--- NOTE | 2019-04-10 12:10 | EKG ---
Test Reason : Blood Pressure : / mmHG Vent. Rate : 084 BPM Atrial Rate : 084 BPM P-R Int : 130 ms QRS Dur : 084 ms QT Int : 360 ms P-R-T Axes : 046 062 059 degrees QTc Int : 425 ms NORMAL SINUS RHYTHM NONSPECIFIC T WAVE ABNORMALITY ABNORMAL ECG WHEN COMPARED WITH ECG OF 04-SEP-2018 10:27, NO SIGNIFICANT CHANGE WAS FOUND Confirmed by GEOVANNI JOHNSON MD ([id number]) on 04/10/2019 12:09:46 PM Referred By: Confirmed By:GEOVANNI JOHNSON MD
[2019-04-10 12:18] LABS: BASO % 0.6 % (0-2.0); EOS % 8.2 % (0-4.5); LYMPH % 30.8 % (8-40); MCH 27.1 pg (25.7-33.7); MCHC 31.8 g/dl (32.0-36.0); MEAN PLT VOLUME 9.8 fl (7.5-11.1); MONO % 6.4 % (3.8-10.2); PLATELET COUNT 234 K/MM3 (134-434); RBC 5.17 M/mm3 (3.60-5.2); RDW 14.3 % (11.6-15.6); WHITE BLOOD COUNT 8.9 K/mm3 (4.0-10.0)
--- NOTE | 2019-04-10 12:30 | PDOC ---
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 Patient also reported whole body aches, nausea weakness and diffuse abdominal pain. Patient had multiple visit in the past for same complaint with no findings. Patient being seen by GI Dr. Hsu for abdominal pain and according to patient was diagnosed with H. pylori which she was treated with 2 weeks course of antibiotics. Patient have appointment with neurology in a week and report her chronic neck pain has been treated with injections. Patient report neck stiffness. Denies headache, fever, chills, chest pain, shortness of breath. Is this a multiple visit Asthma Patient?: No Past History - Past Medical History Allergies/Adverse Reactions: Allergies Allergy/AdvReac Type Severity Reaction Status Date / Time Penicillins Allergy Severe Rash Verified 04/10/19 10:20 egg Allergy Verified 04/10/19 10:20 shellfish derived Allergy Verified 04/10/19 10:20 tree nut Allergy Hives Verified 04/10/19 10:20 Home Medications: Ambulatory Orders Albuterol Sulfate Inhaler - [Ventolin HFA Inhaler -] 1 - 2 inh PO QID PRN Levothyroxine [Synthroid -] 175 mcg PO DAILY 05/30/14 Simvastatin [Zocor -] 20 mg PO HS 01/10/16 Tiotropium [place] [Spiriva] 1 inh PO DAILY 06/20/16 Multivitamin [One Daily] 1 tab PO DAILY 10/10/17 Albuterol 0.083% Nebulizer Purnima [Ventolin 0.083% Nebulizer Soln -] 1 amp NEB PRN #20 amp 02/19/18 Omeprazole 20 mg PO BID 09/04/18 Ondansetron [Zofran *Odt*] 8 mg SL TID PRN #15 od.tablet 09/04/18 Methocarbamol [Robaxin -] 500 mg PO BID PRN #14 tablet 04/10/19 Naproxen 500 mg PO BID PRN #20 tablet 04/10/19 Anemia: No Asthma: Yes Cancer: No Cardiac Disorders: No CVA: No COPD: Yes CHF: No Dementia: No Diabetes: No GI Disorders: Yes (GALLSTONES) Disorders: No HTN: No Hypercholesterolemia: Yes Liver Disease: No Seizures: No Thyroid Disease: Yes (HYPOTHYROIDISM) - Surgical History Abdominal Surgery: No Appendectomy: No Cardiac Surgery: No Cholecystectomy: No Lung Surgery: No Neurologic Surgery: No Orthopedic Surgery: No - Psycho Social/Smoking Cessation Hx Smoking History: Never smoked Have you smoked in the past 12 months: No If you are a former smoker, when did you quit?: 12 years ago Hx Alcohol Use: No Drug/Substance Use Hx: No Substance Use Type: None Hx Substance Use Treatment: No Review of Systems - Review of Systems Able to Perform ROS?: Yes Is the patient limited [place] proficient: No Constitutional: Yes: Malaise, Weakness. No: Chills, Fever HEENTM: No: Symptoms Reported, See HPI, Eye Pain, Blurred Vision, Tearing, Recent change in vision, Double Vision, Cataracts, Ear Pain, Ocular Prothesis, Ear Discharge, Nose Pain, Nose Congestion, Tinnitus, Nose Bleeding, Hearing Loss , Throat Pain, Throat Swelling, Mouth Pain, Dental Problems, Difficulty Swallowing, Mouth Swelling, Other Respiratory: No: Symptoms reported, See HPI, Cough, Orthopnea, Shortness of Breath, SOB with Exertion, SOB at Rest, Stridor, Wheezing, Productive cough, Hemoptysis, Other Cardiac (ROS): No: Symptoms Reported, See HPI, Chest Pain, Edema, Irregular Heart Rate, Lightheadedness, Palpitations, Syncope, Chest Tightness, Other ABD/GI: Yes: Nausea, Vomiting, Abdominal cramping (diffused abdominal aching). No: Symptoms Reported, See HPI, Abd. Pain w/ defecation, Blood Streaked Bowels, Constipated, Diarrhea, Difficulty Swallowing, Poor Appetite, Rectal Bleeding, Indigestion : No: Dysuria, Discharge, Frequency, Urgency Musculoskeletal: Yes: Symptoms Reported, Neck Pain, Joint Stiffness (neck) Neurological: Yes: Symptoms reported, Dizziness. No: Headache, Numbness, Paresthesia, Pre-Existing Deficit, Seizure, Unsteady Gait All Other Systems: Reviewed and Negative *Physical Exam - Vital Signs Last Vital Signs Temp Pulse Resp BP Pulse Ox 98.2 F 92 H 17 150/110 H 99 04/10/19 10:21 04/10/19 10:21 04/10/19 10:21 04/10/19 10:21 04/10/19 10:21 - Physical Exam Comments: 04/10/19 12:31 GENERAL: Well developed, well nourished. Awake and alert. No acute distress. HEENT: Normocephalic, atraumatic. PERRLA, EOMI. No conjunctival pallor. Sclera are non- icteric. Moist mucous membranes. Oropharynx is clear. NECK: Supple. Full ROM. No JVD. Carotid pulses 2+ and symmetric, without bruits. No thyromegaly. No lymphadenopathy. CARDIOVASCULAR: Regular rate and rhythm. No murmurs, rubs, or gallops. Distal pulses are 2+ and symmetric. PULMONARY: No evidence of respiratory distress. Lungs clear to auscultation bilaterally. No wheezing, rales or rhonchi. ABDOMINAL: Soft. Subjective diffuse abdominal pain. Non-distended. No rebound or guarding. No organomegaly. Normoactive bowel sounds. MUSCULOSKELETAL Normal range of motion at all joints. No bony deformities or tenderness. No CVA tenderness. SKIN: Warm and dry. Normal capillary refill. No rashes. No jaundice. NEUROLOGICAL: Alert, awake, appropriate. Cranial nerves 2-12 intact. No deficits to light touch in face, upper extremities and lower extremities. No motor deficits in the in face, upper extremities and lower extremities. Normal speech. Toes are down-going bilaterally. Gait is normal without ataxia. PSYCHIATRIC: Cooperative. Good eye contact. Appropriate mood and affect. General Appearance: Yes: Nourished, Appropriately Dressed. No: Apparent Distress ED Treatment Course - LABORATORY CBC & Chemistry Diagram: 04/10/19 11:15 04/10/19 11:15 - Medications Given in the ED: ED Medications Discontinued Medications Generic Name Dose Route Start Last Admin Trade Name Freq PRN Reason Stop Dose Admin Acetaminophen 1,000 mg 04/10/19 11:33 04/10/19 12:00 Ofirmev Injection - IVPB 04/10/19 11:34 1,000 mg ONCE ONE Administration Methocarbamol 500 mg 04/10/19 11:33 04/10/19 12:00 Robaxin - PO 04/10/19 11:34 500 mg ONCE ONE Administration Medical Decision Making - Medical Decision Making 04/10/19 12:28 Patient with history of Hydrocephalus, Hypothyroidism, chronic neck pain with radiculopathy being followed by neurologist, 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 Patient also reported whole body aches, nausea weakness and diffuse abdominal pain. Patient had multiple visit in the past for same complaint with no findings. Patient being seen by GI Dr. Hsu for abdominal pain and according to patient was diagnosed with H. pylori which she was treated with 2 weeks course of antibiotics. Patient have appointment with neurology in a week and report her chronic neck pain has been treated with injections. Patient report neck stiffness. Denies headache, fever, chills, chest pain, shortness of breath. Clinical exam significant for subjective mild per cervical muscle bilateral lower cervical spine C3-C7 with neck stiffness. Subjective diffuse abdominal pain without guarding or rebound. No palpable mass in abdomen. Normal cardiac and lung exam. Symptoms likely neck spasm causing radiculopathy with dizziness. CBC, CMP labs ordered. Robaxin 500 mg p.o. and IV Tylenol 1 g ordered for pain and spasm. IV fluids normal saline 1 L ordered. Reassess after labs and hydration 04/10/19 15:25 CBC chemistry urine labs are unremarkable. Patient with improvement of symptoms after IV hydration and IV Tylenol Robaxin. Patient stable for discharge on Robaxin as needed for neck spasm naproxen as needed for pain with advised to follow-up with neurology. Patient being followed by Dr. Ellis and advised to follow-up as soon as possible. Patient stable for discharge and will follow up Discharge - Discharge Information Problems reviewed: Yes Clinical Impression/Diagnosis: Dizziness, Neck muscle spasm Abdominal pain Qualifiers: Abdominal location: generalized Qualified Code(s): R10.84 - Generalized abdominal pain Condition: Stable Disposition: HOME - Admission No - Additional Discharge Information Prescriptions: Methocarbamol [Robaxin -] 500 mg PO BID PRN #14 tablet PRN Reason: neck spasm Naproxen 500 mg PO BID PRN #20 tablet PRN Reason: pain - Follow up/Referral Referrals: Brenda Schmidt [Primary Care Provider] - Erasmo Ellis MD [Staff Physician] - - Patient Discharge Instructions Additional Instructions: Your lab work was normal. Your urine lab shows no acute abnormality. Follow- up with your GI doctor for abdominal pains. ER dizziness likely caused by neck spasm. Take prescribed medication as needed for spasm and pain. Follow-up with your neurology Dr. Ellis as soon as possible for reevaluation - Post Discharge Activity
[2019-04-10 13:01] LABS: ALBUMIN 3.9 g/dl (3.4-5.0); BILIRUBIN,TOTAL 0.5 mg/dL (0.2-1); BLOOD UREA NITROGEN 11.9 mg/dL (7-18); CALCIUM 9.1 mg/dL (8.5-10.1); CREATININE 0.8 mg/dL (0.55-1.3); POTASSIUM 5.7 mmol/L (3.5-5.1)
[2019-04-10 13:24] LABS: PH,URINE 7.5 (5.0-8.0); URINE APPEARANCE CLEAR; URINE BILIRUBIN NEGATIVE (NEGATIVE); URINE COLOR YELLOW; URINE GLUCOSE (UA) NEGATIVE (NEGATIVE); URINE KETONE NEGATIVE (NEGATIVE); URINE LEUK ESTERASE NEGATIVE (NEGATIVE); URINE NITRITE NEGATIVE (NEGATIVE); URINE PROTEIN NEGATIVE (NEGATIVE); URINE UROBILINOGEN 0.2 mg/dL (0.2-1.0)
[2019-04-10 15:16] VITALS: BP 145/78; PULSE 74; TEMP 98
== END 2019-04-10 15:40 | disposition home or self-care (01) ==
LOC: JER 10:15
PROC: 3E033NZ Introduction of Analgesics, Hypnotics, Sedatives into Peripheral Vein, Percutaneous Approach (ICD-10-PCS; principal; 2019-04-10)
PROC: 3E0337Z Introduction of Electrolytic and Water Balance Substance into Peripheral Vein, Percutaneous Approach (ICD-10-PCS; 2019-04-10)
DX: M54.2 Cervicalgia (principal); R25.2 Cramp and spasm; R42 Dizziness and giddiness; R10.84 Generalized abdominal pain; Z88.0 Allergy status to penicillin; Z91.012 Allergy to eggs; Z91.018 Allergy to other foods; Z91.013 Allergy to seafood; E03.9 Hypothyroidism, unspecified; G89.29 Other chronic pain; J45.909 Unspecified asthma, uncomplicated; E78.00 Pure hypercholesterolemia, unspecified
CPT/HCPCS: 36415; 80053; 81003; 85025; 87086; 93005; 93010; 99283-25; J0131; J7030